=== PATIENT | male | born 1965 | race Caucasian/White ===

== ENCOUNTER 2023-02-23 01:51 | Inpatient (IN) | payer MEDICARE, SELFPAY ==
--- NOTE | ~2023-02-23 | CT_ITS ---
EXAMINATION: CT HEAD WITHOUT CONTRAST CLINICAL INFORMATION: Altered mental status. COMPARISON: None available. TECHNIQUE: Contiguous axial imaging was performed from the skull base to vertex without intravenous administration of contrast. This CT examination was performed using dose optimization techniques as appropriate, variously including the following: *Automated exposure control *Adjustment of mA and/or kV according to patient size (this includes techniques or standardized protocols for targeted exams where dose is matched to indication/reason for exam; i.e. extremities or head) *Use of iterative reconstruction technique DLP: 680 mGy-cm FINDINGS: There is mild cerebral volume loss with prominence of the lateral and the third ventricles. The cortical sulci are widened appropriately. The fourth ventricle and basal cisterns are normally outlined. There is no acute territorial defect, hemorrhage or midline shift. The extra-axial spaces are unremarkable. Calvarium: Intact. Maxillofacial sinuses and mastoids: Clear as visualized. CT/CT head/brain wo IV con IMPRESSION: No acute intracranial abnormality.
--- NOTE | 2023-02-23 02:12 | ED.PSYCH ---
HPI - Psych General Chief Complaint: General Medical Stated Complaint: SECTION 12 Time Seen by Provider: 02/23/23 02:12 Source: EMS Mode of arrival: EMS Limitations: altered mental status History of Present Illness HPI Narrative: 58-year-old male history of gastritis was brought to the emergency department on a Section 12 for altered mental status. Information is obtained from the nursing note since the patient is altered and cannot give me a history. Patient was found outside his apartment building, not dressed appropriately for the weather, bystanders called police. Patient wandering. Not making sense. Unable to answer questions or follow commands. Unknown drug use. Section 12 applied by police. Patient holding his head say Oh No . Related Data Home Medications Medication Instructions Recorded Confirmed aspirin 81 mg tablet,delayed 81 mg PO DAILY 02/23/23 02/23/23 release baclofen 20 mg tablet 20 mg PO QID 02/23/23 02/23/23 clobetasol 0.05 % topical ointment 1 appl topical BID 02/23/23 02/23/23 clonidine HCl 0.1 mg tablet 0.1 mg PO TID 02/23/23 02/23/23 diltiazem HCl 180 mg 180 mg PO DAILY 02/23/23 02/23/23 capsule,extended release 24 hr fluoxetine 20 mg capsule (Prozac) 20 mg PO DAILY 02/23/23 02/23/23 fluoxetine 40 mg capsule 40 mg PO DAILY 02/23/23 02/23/23 gabapentin 600 mg tablet 600 mg PO QID 02/23/23 02/23/23 hydroxyzine HCl 50 mg tablet 50 mg PO TID PRN Anxiety 02/23/23 02/23/23 ibuprofen 800 mg tablet 800 mg PO Q8H PRN pain 02/23/23 02/23/23 lisinopril 20 mg tablet 20 mg PO BEDTIME 02/23/23 02/23/23 olanzapine 10 mg tablet 10 mg PO BEDTIME 02/23/23 02/23/23 pantoprazole 40 mg tablet,delayed 40 mg PO BID 02/23/23 02/23/23 release pregabalin 225 mg capsule 225 mg PO DAILY 02/23/23 02/23/23 quetiapine 300 mg tablet,extended 300 mg PO BEDTIME 02/23/23 02/23/23 release 24 hr Allergies Allergy/AdvReac Type Severity Reaction Status Date / Time hydrocodone [HYDROCODONE] Allergy Unknown NAUSEA & Unverified 11/09/19 15:34 VOMITING codeine [CODEINE] AdvReac Unknown STOMACH Unverified 11/09/19 15:34 UPSET oxycodone [OXYCODONE] AdvReac Unknown STOMACH Unverified 11/09/19 15:34 UPSET Review of Systems Review of Systems: Yes all other systems are reviewed and are negative [facility] Past Medical History [facility] Narrative: Past medical history: Gastritis Onset Date is defined in the Problem List Problems that require an onset date and time if occurred within 24 hrs of arrival to the ED Aortic Dissection and Rupture; Neurologic impairment; Cardiopulmonary Arrest; Endotracheal Intubation; Insertion or Replacement of Mechanical Circulatory Assist Device Medical History (Updated 02/23/23 @ 11:41 by Cristian Spencer MD) Alcoholism Altered mental status Gastritis Physical Exam Vital Signs: Vital Signs: Last Vital Signs Temp 98.0 F 02/23/23 15:23 Pulse 77 02/23/23 15:23 Resp 18 02/23/23 15:23 BP 163/99 H 02/23/23 15:23 Pulse Ox 96 02/23/23 15:23 O2 Del Method Room Air 02/23/23 15:23 BMI result Body Mass Index 28.7 exam: General: Awake, Patient speaking in 1-2 word sentences, not answering questions appropriately, not following commands Head: Normocephalic, atraumatic EENT: PERRL, Lids normal, sclera normal, conjunctiva normal, nose normal , ears normal, throat without erythema or exudates Neck: no adenopathy Lung: breath sounds symmetric, no wheezing, rales or rhonchi Chest: symmetric movement, nontender Heart: regular rate and rhythm, normal S1, S2 no murmurs or rubs Abdomen: soft, non-tender, nondistended, normal bowel sounds Back: no vertebral tenderness, no CVAT Extremities: no deformities, moves all extremities symmetrically Neuro: Awake, not answer questions appropriately, not following commands, moves all extremities symmetrically Course Reevaluation(s) Reevaluation #1: patient was signed out to me by the overnight physician. The patient is a 58-year-old male who was brought to the hospital by ambulance. He was apparently found outside his apartment building. He was not dressed appropriately for the weather and he seemed to be confused. The initial thought was that the patient must be exhibiting some kind of drug intoxication and he was observed for several hours. At change of shift the patient remains extremely confused. He answers questions very poorly, mostly simply repeating whatever is said to him. He has no lateralizing signs on exam and he has a negative head CT. I spoke with the patient's daughter Edith on the phone. She told me that the patient is an alcoholic. She says that he was sober for 15 years but fell off the wagon last year. She says that she does not know what his drinking has been like recently. She says that the patient also abuses whatever drugs he is prescribed by his doctor. He sees Dr. Danny Davis at [facility] in [place]. She says that she spoke to him on the phone 3 days ago and he sounded perfectly normal. She says that the last time she spoke to him was late on at around midnight. She says at that time he sounded confused on the phone and she assumed he had been drinking. My impression is that the patient is exhibiting a delirium that is likely related to his alcohol use. I have ordered 500 mg of IV thiamine. He is also somewhat hypertensive. I have ordered was of IV lorazepam. I think he need to be hospitalized for his altered mental status. Medications Administered Discontinued Medications Generic Name Dose Route Start Last Admin Trade Name Rigobertoq PRN Reason Stop Dose Admin Enoxaparin Sodium 40 mg 02/23/23 11:00 02/23/23 11:47 Enoxaparin Sodium 40 Mg/0.4 Ml Syringe SUBCUT Not Given Q24H ZI Folic Acid 1 mg 02/23/23 11:05 02/23/23 11:46 Folic Acid 1 Mg Tablet PO Not Given DAILY ZI Sodium Chloride 1,000 mls @ 999 mls/hr 02/23/23 02:16 02/23/23 04:27 Ns IV 02/23/23 03:16 Infused .Q1H1M STA Infusion Thiamine HCl 500 mg/ Sodium 105 mls @ 210 mls/hr 02/23/23 07:30 02/23/23 09:28 Chloride IV 02/23/23 07:59 Infused ONCE ONE Infusion Sodium Chloride 1,000 mls @ 999 mls/hr 02/23/23 08:45 02/23/23 11:36 Ns IV 02/23/23 09:45 Infused .Q1H1M ZI Infusion Dextrose/Sodium Chloride 1,000 mls @ 100 mls/hr 02/23/23 11:00 02/23/23 12:16 D5ns IVCONT 100 mls/hr .Q10H ZI Administration Lorazepam 1 mg 02/23/23 02:16 02/23/23 02:43 Lorazepam 2 Mg/Ml Vial IVPUSH 02/23/23 02:17 1 mg STAT STA Administration Lorazepam 2 mg 02/23/23 08:34 02/23/23 08:39 Lorazepam 2 Mg/Ml Vial IVPUSH 02/23/23 08:35 2 mg ONCE ONE Administration Pantoprazole Sodium 40 mg 02/23/23 08:34 02/23/23 08:46 Pantoprazole Sodium 40 Mg/10 Ml Vial IVPUSH 02/23/23 08:35 40 mg ONCE ONE Administration Sodium Chloride 3 ml 02/23/23 16:00 02/23/23 16:20 0.9 % Sodium Chloride Flush 3 Ml Syringe IVFLUSH Not Given QSHIFT ZI Medical Decision Making Medical Decision Making MDM Narrative: 58-year-old male with history of gastritis who was brought to emergency department on a Section 12 after was found walking outside of his apartment building, acting inappropriately, wandering not answer questions or following commands. Patient had similar behavior the emergency Department. Following evaluation was ordered: CBC, CMP, ethanol level, drug urine screen, TSH with free T4, urinalysis, COVID-19, influenza, RSV, ethanol level, CT scan of the brain without IV contrast patient was treated with Ativan 1 mg IV and normal saline x1 L 04:31 my interpretation patient's laboratory evaluation is as follows: CBC was normal . CMP revealed elevated BUN of 22, elevated glucose 154. Normal TSH of 2.58. Ethanol was below detectable limits. COVID-19, influenza and RSV were negative. Urine drug screen pending collection. CT scan of the brain revealed no acute process. Differential Diagnosis Differential Diagnoses: The differential diagnosis associated with the presentation includes Differential diagnosis includes was not limited to stroke, substance use disorder, alcohol intoxication, electrolyte abnormality, anemia, Admission/Observation Consideration of admission/observation: Escalation of care including admission/observation considered Lab Data 02/23/23 02:39 02/23/23 02:39 Labs: Lab Results 02/23/23 02/23/23 Range/Units 02:39 09:12 WBC 8.8 (4.8-10.8) X10*3/uL RBC 5.09 (4.60-5.80) X10*6/uL Hgb 15.5 (14.0-18.0) g/dl Hct 44.8 (42.0-52.0) % MCV 88.0 (80.0-98.0) fL MCH 30.5 (27.0-33.0) pg MCHC 34.6 (31.0-36.0) g/dl RDW 13.6 (11.0-16.0) % Plt Count 253 (160-400) X10*3/uL MPV 9.7 (9.4-12.4) fL Immature Gran % (Auto) 0.3 (0.0-0.4) % Neut % (Auto) 71.4 (45-73) % Lymph % (Auto) 17.2 L (20-40) % [place] % (Auto) 8.0 (2-11) % Eos % (Auto) 2.6 (0-4) % Baso % (Auto) 0.5 (0-2) % Lymph # (Auto) 1.5 (1.2-4.9) X10*3/uL [place] # (Auto) 0.7 (0.1-1.2) X10*3/uL Eos # (Auto) 0.2 (0.0-0.4) X10*3/uL Baso # (Auto) 0.0 (0.0-0.2) X10*3/uL Abs Immat Gran (auto) 0.03 (0.00-0.03) X10*3/uL Absolute Neuts (auto) 6.3 (2.0-8.3) x10*3/uL Absolute Nucleated RBC 0.000 (0.0-0.012) X10*3/uL Nucleated RBC % (auto) 0.0 (0.0-0.2) /100WBC Sodium 142 (135-145) mmol/L Potassium 4.6 (3.3-5.1) mmol/L Chloride 101 (96-108) mmol/L Carbon Dioxide 26 (22-29) mmol/L Anion Gap 20 (12-20) BUN 22 H (9-16) mg/dL Creatinine 1.18 (0.5-1.4) mg/dL Estim Creat Clear Calc 78.2 Estimated GFR > 60 Random Glucose 154 H (60-115) mg/dL Calcium 10.0 (8.4-10.2) mg/dL Total Bilirubin 0.5 (0.0-1.0) mg/dL AST 16 (5-37) U/L ALT 12 (0-40) U/L Alkaline Phosphatase 68 (39-117) U/L Total Protein 8.1 H (6.5-8.0) g/dL Albumin 4.7 (3.5-5.0) g/dL TSH 2.58 (0.32-4.0) uIU/mL Urine Color Yellow Urine Appearance Clear Urine pH 7.5 (5.0-9.0) Ur Specific [place] 1.025 (1.005-1.025) Urine Protein 30 (1+) H (Neg-Trace) mg/dL Urine Glucose (UA) Negative (Negative) mg/dL Urine Ketones 15 (Negative) mg/dL Urine Blood Negative (Negative) Urine Nitrite Negative (Negative) Ur Leukocyte Esterase Negative (Negative) Urine RBC 3-5 H (0-2) /HPF Urine WBC 0-5 (0-5) /HPF Ur Squamous Epith Cells 0-2 (0-2) /HPF Urine Bacteria None Seen (None Seen) Hyaline Casts 0-2 (0-2) /LPF Urine Opiates Screen Not Detected (Not Detect) Urine Fentanyl Screen Not Detected (Not Detect) Ur Barbiturates Screen Not Detected (Not Detect) Ur Phencyclidine Scrn Not Detected (Not Detect) Ur Amphetamines Screen Not Detected (Not Detect) U Benzodiazepines Scrn Not Detected (Not Detect) Urine Cocaine Screen Not Detected (Not Detect) U Marijuana (THC) Screen POSITIVE H (Not Detect) Ethyl Alcohol < 10 mg/dL Influenza Type A (PCR) NEGATIVE (Negative) Influenza Type B (PCR) NEGATIVE (Negative) RSV RNA Qual (PCR) NEGATIVE (Negative) SARS-CoV-2 RNA (RT-PCR) NEGATIVE (Negative) Radiology Impression Discussion of test interpretation with radiology: I have reviewed the radiologist's reading. Radiologist Impression: CT head/brain wo IV con IMPRESSION: No acute intracranial abnormality. Dictated By: Hasmukh Huff Discharge Plan Discharge Clinical Impression: Alcoholism Altered mental status Qualifiers: Altered mental status type: unspecified Qualified Code(s): R41.82 - Altered mental status, unspecified Patient Disposition: Left Against Medical Advice Interventions: ED Discharge Assessment Last Done: 02/23/23 19:39 Discharge Date/Time: 02/23/23 19:40
--- NOTE | 2023-02-23 02:16 | ECG_ITS ---
Test Reason : CHANGE IN MENTAL STATUS, CHEST PAIN Blood Pressure : / mmHG Vent. Rate : 063 BPM Atrial Rate : 063 BPM P-R Int : 140 ms QRS Dur : 072 ms QT Int : 418 ms P-R-T Axes : 053 -01 046 degrees QTc Int : 427 ms Normal sinus rhythm Normal ECG When compared with ECG of 28-JAN-2011 19:17, Premature supraventricular complexes are no longer Present Questionable change in QRS axis Referred By: Leandro Moore Electronically Signed By:Edson Sanchez
[2023-02-23 02:17] VITALS: BP 175/108; PULSE 89; O2SAT 100; BMI 28.7
--- NOTE | 2023-02-23 02:25 | PC.NURSE ---
pt unable to answer questions or follow commands at this time. pt vomited upon arrival. mold changer complete. pt taken to CT
[2023-02-23 02:42] LABS: MANUAL DIFF FLAG NO
[2023-02-23 02:43] LABS: Basophils Percent Auto 0.5 % (0-2); Eosinophils Absolute Auto 0.2 X10*3/uL (0.0-0.4); Eosinophils Percent Auto 2.6 % (0-4); Hematocrit 44.8 % (42.0-52.0); Hemoglobin 15.5 g/dl (14.0-18.0); Imm Gran Abs Auto 0.03 X10*3/uL (0.00-0.03); Imm Gran Pct Auto 0.3 % (0.0-0.4); Lymphocytes Absolute Auto 1.5 X10*3/uL (1.2-4.9); Lymphocytes Percent Auto 17.2 % (20-40); Mean Corpuscular HGB Conc 34.6 g/dl (31.0-36.0); Mean Corpuscular Hemoglobin 30.5 pg (27.0-33.0); Mean Platelet Volume 9.7 fL (9.4-12.4); Monocytes Absolute Auto 0.7 X10*3/uL (0.1-1.2); Neutrophils Absolute Auto 6.3 x10*3/uL (2.0-8.3); Neutrophils Percent Auto 71.4 % (45-73); Platelet Count 253 X10*3/uL (160-400); Red Blood Count 5.09 X10*6/uL (4.60-5.80); Red Cell Distribution Width 13.6 % (11.0-16.0); White Blood Count 8.8 X10*3/uL (4.8-10.8)
[2023-02-23] MEDS: LORazepam 2 MG/ML VIAL 1 MG IVPUSH (02:43)
[2023-02-23] MEDS: 0.9 % Sodium Chloride 1,000 ML 999 ML IV ×2 (02:43→08:46)
[2023-02-23 03:01] LABS: Alanine Aminotransferase 12 U/L (0-40); Albumin Level 4.7 g/dL (3.5-5.0); Alkaline Phosphatase 68 U/L (39-117); Anion Gap 20 (12-20); Aspartate Amino Transferase 16 U/L (5-37); Bilirubin Total 0.5 mg/dL (0.0-1.0); Blood Urea Nitrogen 22 mg/dL (9-16); Carbon Dioxide 26 mmol/L (22-29); Chloride 101 mmol/L (96-108); Creatinine Clr Calc Pharmacy 78.2; Estimated Glomerular Filt Rate > 60; Glucose Random 154 mg/dL (60-115); Potassium 4.6 mmol/L (3.3-5.1); Sodium 142 mmol/L (135-145); Total Protein 8.1 g/dL (6.5-8.0)
[2023-02-23 03:04] LABS: Ethanol < 10 mg/dL
[2023-02-23 03:20] LABS: TSH reflex Free T4 2.58 uIU/mL (0.32-4.0)
[2023-02-23 03:22] LABS: Influenza A PCR NEGATIVE (Negative); Influenza B PCR NEGATIVE (Negative); Resp Syncy Virus RNA Qual PCR NEGATIVE (Negative); SARS COV2 PCR INHOUSE NEGATIVE (Negative)
--- NOTE | 2023-02-23 04:42 | PC.NURSE ---
pt restless on stretcher.still unable to answer questions or follow most commands. IVF infusing slowly, will not keep arm straight
[2023-02-23 04:45] VITALS: BP 159/92; PULSE 55; RESP 14; TEMP 36.9; O2SAT 96
--- NOTE | 2023-02-23 06:30 | PC.NURSE ---
pt remains restless, kept getting tangled in IV tubing from rolling around. pt still unable to answer questions. Jose do you know where you are? , pt responds yes... Jose. no further elaboration given by pt
[2023-02-23 08:36] VITALS: BP 197/106; PULSE 74; RESP 14; TEMP 36.6; O2SAT 96
[2023-02-23] MEDS: Thiamine HCL 500 MG in 0.9 % Sodium Chloride 100 ML 210 MG IV (08:39)
[2023-02-23] MEDS: LORazepam 2 MG/ML VIAL IVPUSH (08:39)
[2023-02-23] MEDS: Pantoprazole Sodium 40 MG/10 ML VIAL IVPUSH (08:46)
[2023-02-23 09:02] VITALS: BP 158/93; PULSE 60; RESP 14; O2SAT 98
[2023-02-23 09:19] LABS: Appearance Urine Clear; Color Urine Yellow; Glucose Urine UA Negative (Negative); Leukocyte Esterase Urine Negative (Negative); Nitrite Urine Negative (Negative); PH 7.5 (5.0-9.0); Specific Gravity - Urine 1.025 (1.005-1.025); UMIC TRIGGER UACC YES; Urine Blood Negative (Negative); Urine Ketones 15 mg/dL (Negative); Urine Protein 30 (1+) mg/dL (Neg-Trace)
[2023-02-23 09:27] LABS: Bacteria Urine None Seen (None Seen); Hyaline Casts Urine 0-2 /LPF (0-2); Squamous Epithelial Cell Urine 0-2 /HPF (0-2); WBC Urine 0-5 /HPF (0-5)
--- NOTE | 2023-02-23 09:29 | PC.NURSE ---
Addendum entered by Alyssa Contreras 02/23/23 09:32: per daughter, patient has history of etoh/substance use. states patient has been off for the past few days . Original Note: continues to be altered at this time, unable to answer questions appropriately. moved from [facility] to bed 19, began vomiting approx 200mL with ?blood tinged emesis. changed and repositioned in bed, rectal temp obtained. straight cath obtained, urine sent. patient tolerated fairly. patient occasionally trying to get out of bed, able to be redirected easily. appears to be resting quietly with even and unlabored respirations.
[2023-02-23 09:35] LABS: Amphetamine Screen Urine Not Detected (Not Detect); Barbiturates, Urine Not Detected (Not Detect); Benzodiazepines Screen Urine Not Detected (Not Detect); Cannabinoid Screen Urine POSITIVE (Not Detect); Cocaine Screen Urine Not Detected (Not Detect); Fentanyl, urine Not Detected (Not Detect); Opiate Screen Urine Not Detected (Not Detect); Phencyclidine Screen Urine Not Detected (Not Detect)
--- NOTE | 2023-02-23 10:26 | PC.NURSE ---
Hospitalist at bedside to evaluate patient.
--- NOTE | 2023-02-23 10:36 | PM.IMHP ---
History of Present Illness Date of Service: 02/23/23 Attending physician on admission: Cristian Spencer Chief Complaint: Altered mental status Jose Bennett is a 58-year-old man with past medical history significant for alcohol abuse and gastritis was brought to the emergency department after he was found to her altered mental status. HPI was obtained from emergency physician, chart review and ED RN as patient was sedated upon evaluation. he seems leg the patient was found also his apartment building acting normally, no dressed appropriately for the weather by bystanders and police department was contacted. He has not been able to answer questions appropriately. In the ED, he was found to have stable vital signs. There is no fever reported. His blood pressure is 150/93. Blood workup including CBC, CMP and TSH unremarkable. Head CT scan without contrast showed no acute intracranial abnormality. EKG showed NSR, no acute ischemic changes. Viral testing for COVID-19, influenza and RSV are negative. ED Tx: Ativan 2 mg IV, Thiamine 200 mg IV and Zofran 4 mg IV X1. NS 1L 1000 ml. Review of Systems Review of Systems: Yes Unobtainable due to mental status Neurologic: Reports confusion Psychiatric: Psychiatric: Reports confusion [facility] Medical History (Updated 02/23/23 @ 11:41 by Cristian Spencer MD) Alcoholism Altered mental status Gastritis Social History Advance Directives: No Advance Directives Information Provided: No Meds Allergies Allergy/AdvReac Type Severity Reaction Status Date / Time hydrocodone [HYDROCODONE] Allergy Unknown NAUSEA & Unverified 11/09/19 15:34 VOMITING codeine [CODEINE] AdvReac Unknown STOMACH Unverified 11/09/19 15:34 UPSET oxycodone [OXYCODONE] AdvReac Unknown STOMACH Unverified 11/09/19 15:34 UPSET Active Medications: HOME MEDICATIONS UNABLE TO ASSESS DUE TO PATIENT'S ALTERED MENTAL STATUS. Home Medications Medication Instructions Recorded Confirmed Last Taken Type aspirin 81 mg tablet,delayed 81 mg PO DAILY 02/23/23 Unknown History release baclofen 20 mg tablet 20 mg PO QID 02/23/23 Unknown History clobetasol 0.05 % topical ointment 1 appl topical BID 02/23/23 Unknown History clonidine HCl 0.1 mg tablet 0.1 mg PO TID 02/23/23 Unknown History diltiazem HCl 180 mg 180 mg PO DAILY 02/23/23 Unknown History capsule,extended release 24 hr fluoxetine 40 mg capsule 40 mg PO QAM 02/23/23 Unknown History gabapentin 600 mg tablet 600 mg PO QID 02/23/23 Unknown History hydroxyzine HCl 50 mg tablet 50 mg PO TID 02/23/23 Unknown History ibuprofen 800 mg tablet 800 mg PO Q8H PRN pain 02/23/23 Unknown History lisinopril 20 mg tablet 20 mg PO BEDTIME 02/23/23 Unknown History olanzapine 10 mg tablet 10 mg PO BEDTIME 02/23/23 Unknown History pantoprazole 40 mg tablet,delayed 40 mg PO BID 02/23/23 Unknown History release pregabalin 225 mg capsule 225 mg PO DAILY 02/23/23 Unknown History quetiapine 300 mg tablet,extended 300 mg PO BEDTIME 02/23/23 Unknown History release 24 hr Physical Exam Vital Signs and Narrative: Vital Signs: Last Vital Signs Temp 97.9 F 02/23/23 08:36 Pulse 60 02/23/23 09:02 Resp 14 02/23/23 09:02 BP 158/93 H 02/23/23 09:02 Pulse Ox 98 02/23/23 09:02 O2 Del Method Room Air 02/23/23 09:02 BMI result Body Mass Index 28.7 Const: Other: Sedated. Unable to answer questions. General: no acute distress and confusion Orientation/consciousness: confusion Limitations: altered mental status HEENT: Head: Yes normal to inspection, Yes normocephalic and Yes atraumatic Eyes: General: appearance normal, both eyes and all related structures Pupils: Equal, round and reactive pupils present EOM: No Nystagmus present Direct Ophthalmoscopy: normal light reflex Resp: Effort & Inspection: normal respiratory effort Cardio: Rate: regular rate Rhythm: regular rhythm Heart sounds: no murmurs GI: Inspection: Yes normal to inspection Palpation (GI): Soft to palpation and nontender Auscultation: normal bowel sounds Neuro: General: confusion and other (unable to follow commands, open eyes to verbal stimuli) Cranial nerves: Yes Equal, round and reactive pupils present and No Nystagmus present Motor exam (neuro): no tremors, No Asterixis during motor activity present and Other motor observations present (no gross focal abnormalities) Extrem: General: Yes normal to inspection, Yes full ROM, Yes no clubbing, cyanosis or edema, Yes no pedal edema and Yes pedal edema Psych: Speech and movement: Mute speech present Attitude: Other attitude/behavior findings present (Psych) Results Labs 02/23/23 02:39 02/23/23 02:39 Labs: Laboratory Results - last 24 hr 02/23/23 02/23/23 02:39 09:12 MCV 88.0 MCH 30.5 MCHC 34.6 RDW 13.6 Plt Count 253 MPV 9.7 Immature Gran % (Auto) 0.3 Neut % (Auto) 71.4 Lymph % (Auto) 17.2 L [place] % (Auto) 8.0 Eos % (Auto) 2.6 Baso % (Auto) 0.5 Lymph # (Auto) 1.5 [place] # (Auto) 0.7 Eos # (Auto) 0.2 Baso # (Auto) 0.0 Abs Immat Gran (auto) 0.03 Absolute Neuts (auto) 6.3 Absolute Nucleated RBC 0.000 Nucleated RBC % (auto) 0.0 Anion Gap 20 Estim Creat Clear Calc 78.2 Estimated GFR > 60 Random Glucose 154 H Calcium 10.0 Total Bilirubin 0.5 AST 16 ALT 12 Alkaline Phosphatase 68 Total Protein 8.1 H Albumin 4.7 TSH 2.58 Urine Color Yellow Urine Appearance Clear Urine pH 7.5 Ur Specific [place] 1.025 Urine Protein 30 (1+) H Urine Glucose (UA) Negative Urine Ketones 15 Urine Blood Negative Urine Nitrite Negative Ur Leukocyte Esterase Negative Urine RBC 3-5 H Urine WBC 0-5 Ur Squamous Epith Cells 0-2 Urine Bacteria None Seen Hyaline Casts 0-2 Urine Opiates Screen Not Detected Urine Fentanyl Screen Not Detected Ur Barbiturates Screen Not Detected Ur Phencyclidine Scrn Not Detected Ur Amphetamines Screen Not Detected U Benzodiazepines Scrn Not Detected Urine Cocaine Screen Not Detected U Marijuana (THC) Screen POSITIVE H Ethyl Alcohol < 10 Influenza Type A (PCR) NEGATIVE Influenza Type B (PCR) NEGATIVE RSV RNA Qual (PCR) NEGATIVE SARS-CoV-2 RNA (RT-PCR) NEGATIVE Imaging Radiologist's Impressions: Impressions Head CT 02/23/23 02:31 IMPRESSION: No acute intracranial abnormality. Assessment and Plan (1) Alcoholism: Status: Acute (2) Altered mental status: Qualifiers: Altered mental status type: unspecified Qualified Code(s): R41.82 - Altered mental status, unspecified Status: Acute (3) Gastritis: Qualifiers: Gastritis type: unspecified gastritis Chronicity: chronic Gastritis bleeding: without bleeding Qualified Code(s): K29.50 - Unspecified chronic gastritis without bleeding Status: Chronic Plan Jose Bennett is a 58-year-old man with past medical history significant for alcohol abuse and gastritis admitted with: 1. Altered mental status. Etiology is unclear to me. Possible encephalopathy related to alcohol consumption. Currently sedated after receiving tx with Ativan. Will Admitting to hospitalist service. [facility] protocol. Will consider Ativan or phenobarbital as needed. Start IVFs with D5 and thiamine daily (already given in ED). Will consider brain MRI if neuro status worsen. 2. Hx of alcohol abuse. [facility] protocol. Will consider Ativan as needed. Start therapy with multivitamin and folic acid. Social work consult/Case management evalutation. 3. Hx of gastritis. Will order famotidine. 4. Hypertension. Will continue anti-HTN meds after home meds reviewed by pharmacy. Quality Stroke Does the patient have a stroke diagnosis?: No VTE Prior VTE?: No VTE Risk Level:: Medical - moderate - high VTE Device Contraindication: Treatment Not Indicated VTE Drug Contraindication: N/A - Med Ordered
[2023-02-23 11:29] LABS: Ammonia 35 umol/L (13-55)
--- NOTE | 2023-02-23 11:42 | PC.NURSE ---
appears to be more oriented, when asked about birthday able to state [birth year] however patient repeats self over and over. knows he is in emergency department, does not know why he is here or events leading up to coming.
--- NOTE | 2023-02-23 12:06 | PHA.MEDREC ---
Pharmacy Consult ? Medication Reconciliation Pharmacy has completed the medication reconciliation. Patient unable to answer questions. Called daughter Edith which does not know patient meds. Received med list from [email or web address] [facility] (01/06/23), however some changes when compared to claim history. Patient hasn't filled clotrimazole, diclofenac, or zofran in months so left off med rec. Per claim history and pharmacy, patient changed from clonidine 0.1 mg BID to TID, Prozac changed from 40 mg BID to 60 mg daily, seroquel changed from 100 mg to 300 mg ER bedtime. Patient's pharmacy also confirmed that the patient filled gabapentin 600mg QID and states that they have an active script for Pregablin 225 mg daily. When looking at claim history, pregablin and gabapentin have been filled within the same month of each other for several months.
[2023-02-23] MEDS: Dextrose 5 % and 0.9 % NaCl 1,000 ML 100 ML IVCONT (12:16)
[2023-02-23 12:17] VITALS: BP 114/57; PULSE 78; RESP 14; O2SAT 97
--- NOTE | 2023-02-23 14:28 | PC.NURSE ---
Pt resting comfortably on stretcher, respirations equal and unlabored. Awaiting inpatient bed assignment.
[2023-02-23 15:23] VITALS: BP 163/99; PULSE 77; RESP 18; TEMP 36.7; O2SAT 96
--- NOTE | 2023-02-23 16:30 | PC.NURSE ---
patient alert and oriented at this time, speaking in full clear sentences and responding to questions appropriately. unsure of events leading to him coming to emergency department, denies ETOH/substance use last night. requesting water and phone to call daughter.
--- NOTE | 2023-02-23 18:15 | PC.NURSE ---
patient requesting to leave, hospitalist speaking with patient. ambulating independently with strong, steady gait. continues to be alert and oriented, answering questions appropriately.
--- NOTE | 2023-02-23 18:37 | P.DS_ITS ---
DS: Providers Provider Date of Service: 02/23/23 Date of admission: 02/23/23 10:49 Primary care physician: Unknown Physician DS: Diagnosis Discharge Diagnosis (1) Alcoholism: Status: Inactive (2) Altered mental status: Status: Resolved (3) Gastritis: Status: Resolved DS: Summary Hospital Course Hospital Course: Chief Complaint: Altered mental status Jose Bennett is a 58-year-old man with past medical history significant for alcohol abuse and gastritis was brought to the emergency department after he was found to her altered mental status. HPI was obtained from emergency phys ician, chart review and ED RN as patient was sedated upon evaluation. he seems leg the patient was found also his apartment building acting normally, no dressed appropriately for the weather by bystanders and police department was contacted. He has not been able to answer questions appropriately. In the ED, he was found to have stable vital signs. There is no fever reported. His blood pressure is 150/93. Blood workup including CBC, CMP and TSH unremarkable. Head CT scan without contrast showed no acute intracranial abnormality. EKG showed NSR, no acute ischemic changes. Viral testing for COVID- 19, influenza and RSV are negative. ED Tx: Ativan 2 mg IV, Thiamine 200 mg IV and Zofran 4 mg IV X1. NS 1L 1000 ml. Hospital course: Patient was admited due to altered mental status with unremarkable work and treated as above, after sleeping most of the day, he has waken up completley lucid, alert oriented to self, place, time and aknowledge he took too many pills including Baclofen. Patient was not admitted under section. He discusouraged to leave this late but adamament he's leaving and assuming all risks, including his condition worsening, leading to injury or even . He assumes complete responsibility and able to articulate this in his own words and will proceed to leave [place]. He provided from memory his daughter Edith's number [phone], I spoke to her explain to her that we unable to hold him agaist his will at this time given complete lucidity and understanding of his circumstance. OTONIEL Contreras witnessed the conversation and interaction Time Attestation Discharge coordination time: Greater than 30 minutes Quality: Safe Use of Opioids Does Pt have an Active Cancer Diagnosis on the Problem List?: No Quality: Stroke Does the patient have a stroke diagnosis?: No Physical Exam Vital Signs: Vital Signs: Last Vital Signs Temp 98.0 F 02/23/23 15:23 Pulse 77 02/23/23 15:23 Resp 18 02/23/23 15:23 BP 163/99 H 02/23/23 15:23 Pulse Ox 96 02/23/23 15:23 O2 Del Method Room Air 02/23/23 15:23 BMI result Body Mass Index 28.7 DS: Data Data Completed and Pending Labs on day of discharge: Laboratory Results - last 24 hr 02/23/23 02/23/23 02/23/23 02:39 09:12 11:14 WBC 8.8 RBC 5.09 Hgb 15.5 Hct 44.8 MCV 88.0 MCH 30.5 MCHC 34.6 RDW 13.6 Plt Count 253 MPV 9.7 Immature Gran % (Auto) 0.3 Neut % (Auto) 71.4 Lymph % (Auto) 17.2 L [place] % (Auto) 8.0 Eos % (Auto) 2.6 Baso % (Auto) 0.5 Lymph # (Auto) 1.5 [place] # (Auto) 0.7 Eos # (Auto) 0.2 Baso # (Auto) 0.0 Abs Immat Gran (auto) 0.03 Absolute Neuts (auto) 6.3 Absolute Nucleated RBC 0.000 Nucleated RBC % (auto) 0.0 Sodium 142 Potassium 4.6 Chloride 101 Carbon Dioxide 26 Anion Gap 20 BUN 22 H Creatinine 1.18 Estim Creat Clear Calc 78.2 Estimated GFR > 60 Random Glucose 154 H Calcium 10.0 Total Bilirubin 0.5 AST 16 ALT 12 Alkaline Phosphatase 68 Ammonia 35 Total Protein 8.1 H Albumin 4.7 TSH 2.58 Urine Color Yellow Urine Appearance Clear Urine pH 7.5 Ur Specific [place] 1.025 Urine Protein 30 (1+) H Urine Glucose (UA) Negative Urine Ketones 15 Urine Blood Negative Urine Nitrite Negative Ur Leukocyte Esterase Negative Urine RBC 3-5 H Urine WBC 0-5 Ur Squamous Epith Cells 0-2 Urine Bacteria None Seen Hyaline Casts 0-2 Urine Opiates Screen Not Detected Urine Fentanyl Screen Not Detected Ur Barbiturates Screen Not Detected Ur Phencyclidine Scrn Not Detected Ur Amphetamines Screen Not Detected U Benzodiazepines Scrn Not Detected Urine Cocaine Screen Not Detected U Marijuana (THC) Screen POSITIVE H Ethyl Alcohol < 10 Influenza Type A (PCR) NEGATIVE Influenza Type B (PCR) NEGATIVE RSV RNA Qual (PCR) NEGATIVE SARS-CoV-2 RNA (RT-PCR) NEGATIVE Discharge Plan Discharge Anticipated Discharge Date/Time: 02/23/23 18:34 Patient Disposition: Left Against Medical Advice Discharge Diagnosis: altered mental status, substance use Referrals: Physician,Unknown J [Primary Care Provider] - 1 Week Discharge Medications: No Action fluoxetine 40 mg capsule 40 mg PO DAILY Rx Instructions: with 20 mg clonidine HCl 0.1 mg tablet 0.1 mg PO TID gabapentin 600 mg tablet 600 mg PO QID ibuprofen 800 mg tablet 800 mg PO Q8H PRN (Reason: pain) diltiazem HCl 180 mg capsule,extended release 24hr 180 mg PO DAILY lisinopril 20 mg tablet 20 mg PO BEDTIME olanzapine 10 mg tablet 10 mg PO BEDTIME hydroxyzine HCl 50 mg tablet 50 mg PO TID PRN (Reason: Anxiety) aspirin 81 mg tablet,delayed release (DR/EC) 81 mg PO DAILY baclofen 20 mg tablet 20 mg PO QID pantoprazole 40 mg tablet,delayed release (DR/EC) 40 mg PO BID clobetasol 0.05 % ointment 1 appl topical BID quetiapine 300 mg tablet extended release 24 hr 300 mg PO BEDTIME fluoxetine [Prozac] 20 mg capsule 20 mg PO DAILY Rx Instructions: with 40mg pregabalin 225 mg capsule 225 mg PO DAILY Discharge Orders: Discharge Order (Routine); Ordered 02/23/23 Ordered By: José Miguel Mcgee Diet: Advance to usual diet Activity on Discharge: As tolerated Stand Alone Forms: Against Medical Advice, Substance Abuse Outpt Detox Care Plan Goals: avoid coming back in similar condition Health Concerns: altered mental status that has resolved, substance use, alcoholic Plan of Treatment: tk KOO, instructed to avoid use of any ilicit substance or non-prescribed medication, spoke to her daughter Edith [phone] and will figure out to get him Assessment: tk KOO Discharge Date/Time: 02/24/23 16:52
--- NOTE | 2023-02-24 08:44 | MHC.CM.ED ---
Patient left AMA before being seen by case management.
== END 2023-02-24 16:52 | disposition left against medical advice (07) | DRG 918 ==
LOC: HO.ED 10:52 → HO.EDOVER 11:00
PROVIDERS: Emergency Medicine Emergency Medical Services; Admitting Provider Internal Medicine; Emergency Provider Emergency Medicine; Visit Provider Internal Medicine
DX: T42.8X1A Poisoning by antiparkinsonism drugs and other central muscle-tone depressants, accidental (unintentional), initial encounter (principal); R41.82 Altered mental status, unspecified; K29.50 Unspecified chronic gastritis without bleeding; I10 Essential (primary) hypertension; F10.20 Alcohol dependence, uncomplicated; Z20.822 Contact with and (suspected) exposure to COVID-19; Z79.82 Long term (current) use of aspirin; Z79.899 Other long term (current) drug therapy
CPT/HCPCS: 0241U; 36415; 70450; 80053; 80307; 81001; 82140; 84443; 85025; 93005; 99285; C9113; J2060; J3411

== ENCOUNTER → 2023-02-23 02:16 | Outpatient (BNV) | payer MEDICARE, SELFPAY | PROVIDERS: Admitting Provider Internal Medicine; Emergency Provider Emergency Medicine; Visit Provider Internal Medicine Cardiovascular Disease | DX: R07.9 Chest pain, unspecified (principal); R41.82 Altered mental status, unspecified | CPT/HCPCS: 93010 ==

== ENCOUNTER → 2023-02-23 10:49 | Outpatient (BNV) | payer MEDICARE, SELFPAY | PROVIDERS: Admitting Provider Internal Medicine; Emergency Provider Emergency Medicine; Visit Provider Internal Medicine | DX: F10.20 Alcohol dependence, uncomplicated (principal); R41.82 Altered mental status, unspecified; K29.50 Unspecified chronic gastritis without bleeding | CPT/HCPCS: 99222; 99239 ==

== ENCOUNTER 2024-05-01 12:57 | Outpatient (REF) | payer OTHER, SELFPAY ==
--- NOTE | ~2024-05-01 | XR_ITS ---
EXAMINATION: XR KNEE, RIGHT CLINICAL INFORMATION: S83.91XA - Sprain of unspecified site of right knee, initial encounter COMPARISON: None available. TECHNIQUE: Four views of the right knee. FINDINGS: No fracture, dislocation, or suspicious bone lesion. Normal bone mineralization. Normal alignment. Joint spaces are preserved. No significant arthropathy. No significant joint effusion. Soft tissues demonstrate moderate vascular calcifications. XR/XR knee RT 4V IMPRESSION: 1. No acute findings right knee. Electronically signed by: Ronnie Ley MD 05/01/2024 02:28 PM EDT
--- OUTSIDE RECORDS SUMMARY | 2024-05-01 16:01 | XMS_ITS | Encounter Summary ---
Author Organization [facility] Address [address] [place] [address] Care Team Providers Care Sales Agent Trading Stamps Name Role Phone Danny Davis MD Primary Care Provider [phone] Encounter Details Date Type Department Care Team (Late Contact Info) Description 04/17/2024 Telephone Adult Medicine 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 Pt is in agreement with this plan. documented in this encounter Plan of Treatment Upcoming Encounters Date Type Department Care Team (Late st Contact Info) Description 05/05/2024 4:30 PM EDT Office Visit Adult Medicine [facility] [address] [place] [phone] Danny Davis MD [address] [place] [phone] 05/08/2024 2:45 PM EDT Office Visit [facility] Hematology Oncology [address] [place] [phone] Chencho Redman MD [address] [place] [phone] documented as of this encounter Visit Diagnoses Not on filedocumented in this encounter Care Teams Sales Agent Trading Stamps Relationship Specialty Start Date End Date Danny Davis MD [address] [place] [id number] PCP - General Internal Medicine 10/20/11 documented as of this encounter
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
--- OUTSIDE RECORDS SUMMARY | 2024-05-01 16:01 | XMS_ITS | Encounter Summary ---
Author Organization [facility] Address [address] [place] [address] Care Team Providers Care Ekg Tech Name Role Phone Danny Davis MD Primary Care Provider [phone] Reason for Visit * Reason Onset Date Comments Medication Reaction 04/12/2024 Encounter Details Date Type Department Care Team ([facility] st Contact Info) Description 04/12/2024 Telephone Adult Medicine [facility] [address] [place] [phone] Danny Davis MD [address] [place] [address] Medication Reaction Social History Tobacco Use Types [...] 4:30 PM EDT Office Visit Adult Medicine [address] [phone] Danny Davis MD [address] [place] [address] 05/08/2024 2:45 PM EDT Office Visit [facility] Hematology Oncology [address] [place] [phone] Chencho Redman MD [address] [place] [phone] documented as of this encounter Visit Diagnoses Not on filedocumented in this encounter Care Teams Ekg Tech Relationship Specialty Start Date End Date Danny Davis MD [address] [place] [phone] PCP - General Internal Medicine 10/20/11 documented as of this encounter
== END 2024-05-01 12:58 | disposition home or self-care (01) ==
LOC: HO.HMGCX 12:57
PROVIDERS: Visit Provider Nurse Practitioner Family
DX: S83.91XA Sprain of unspecified site of right knee, initial encounter (principal)
CPT/HCPCS: 73564; 99212

== ENCOUNTER 2024-05-01 12:57 | Outpatient (AMB) | payer MEDICARE, SELFPAY ==
--- NOTE | 2024-05-01 13:22 | AM.OFFWIN_ITS ---
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 Patient Tobacco Use Status: Former Tobacco user Allergies hydrocodone [HYDROCODONE] Allergy (Unknown, Unverified 05/01/24 13:23) NAUSEA & VOMITING codeine [CODEINE] Adverse Reaction (Unknown, Unverified 05/01/24 13:23) STOMACH UPSET oxycodone [OXYCODONE] Adverse Reaction (Unknown, Unverified 05/01/24 13:23) STOMACH UPSET Do you need a note to return to daycare/school/sports/work: No HPI HPI Comments History of Present Illness Details 59 y/o male patient who presents to the walk in clinic with c/o right knee pain for couple months. He injured his knee when Basketball with his Son. Reports hearing a POP when landed after Jump. Reports pain with ROM; Bending and walking up Stairs. [facility] Medical History (Updated 05/01/24 @ 14:05 by Norah Lockett NP) Right knee sprain Alcoholism Altered mental status Gastritis Social History Patient Tobacco Use Status: Former Tobacco user Review of Systems Const All systems reviewed & are unremarkable except as noted in HPI and below Physical Exam Vital Signs: Last Vital Signs Pulse 87 05/01/24 13:23 BP 118/70 05/01/24 13:23 Pulse Ox 95 05/01/24 13:23 Oxygen Delivery Method Room Air 05/01/24 13:23 BMI result Body Mass Index 35.7 Const General: cooperative and no acute distress; No comfortable Nutritional Appearance: overweight Orientation/consciousness: patient oriented x3 Neuro General: patient oriented x3, gait normal and moves all extremities Extrem Right lower extremity: normal to inspection and knee Details: tenderness Location: of the patella, of the medial joint line and of the lateral joint line and normal ROM; no swelling, no deformity and no unusual warmth Left lower extremity: normal to inspection and full ROM Psych Speech and movement: Normal speech and movement present Assessment & Plan Assessment & Plan (1) Right knee sprain: Code(s): S83.91XA - Sprain of unspecified site of right knee, initial encounter Qualifiers: Encounter type: initial encounter Involved ligament of knee: unspecified ligament Qualified Code(s): S83.91XA - Sprain of unspecified site of right knee, initial encounter Plan: Ordered Xray Knee Knee Brace NSAIDs for pain relief Rest joint Ice/Hot Medications: New diclofenac sodium 1% 2 grams topical BID 100 grams 0RF PAIN S83.91XA - Sprain of unspecified site of right knee, initial encounter ibuprofen 800 mg PO Q8H PRN 20 tabs 0RF pain S83.91XA - Sprain of unspecified site of right knee, initial encounter Coding Level of Care Code Est Pt Level 4 (92214) Diagnoses Sprain of right knee, unspecified ligament, initial encounter S83.91XA Encounter type: initial encounter Involved ligament of knee: unspecified ligament Time Spent (min) 20
[2024-05-01 13:23] VITALS: BP 118/70; PULSE 87; O2SAT 95; BMI 35.7
--- OUTSIDE RECORDS SUMMARY | 2024-05-01 14:31 | XMS_ITS | Encounter Summary ---
Author Organization [facility] Address [address] [place] [address] Care Team Providers Care Mapping Editor Name Role Phone Danny Davis MD Primary Care Provider Encounter Details Date Type Department Care Team (Late Contact Info) Description 04/17/2024 Telephone Adult Medicine [facility] [address] [place] [phone] Jenn Bowman RN Social History Tobacco Use Types Packs/Day Years Used Date Smoking Tobacco: Every Day Smokeless Tobacco: Never Alcohol Use Standard Drinks/Week Comments No 0 (1 standard drink = 0.6 oz pur e alcohol) Sex and Gender Information Value Date Recorded Sex Assigned at Not on file Legal Sex Male 12:56 PM EST Gender Identity Not on file Sexual Orientation Not on file documented as of this encounter Progress Notes * Jenn Bowman RN - 04/17/2024 5:[address] Davis; Can we please let the pharmacy now that we are aware of the interaction with the amitriptyline and his prozac and clonidine. Please tell them the benefit out weighs the risk and to please fill the amitriptyline Called pharmacy and advised them of the above. 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 Pt is in agreement with this plan. documented in this encounter Plan of Treatment Upcoming Encounters Date Type Department Care Team (Late st Contact Info) Description 05/05/2024 4:30 PM EDT Office Visit Adult Medicine [facility] [address] [place] [phone] Danny Davis MD [address] [place] [phone] 05/08/2024 2:45 PM EDT Office Visit [facility] Hematology Oncology [address] [place] [phone] Chencho Redman MD [address] [place] [phone] documented as of this encounter Visit Diagnoses Not on filedocumented in this encounter Care Teams Mapping Editor Relationship Specialty Start Date End Date Danny Davis MD [address] [place] [id number] PCP - General Internal Medicine 10/20/11 documented as of this encounter
--- OUTSIDE RECORDS SUMMARY | 2024-05-01 14:31 | XMS_ITS | Clinical Summary ---
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 42 >=40 mg/dL LDL Cholesterol 102(A) 0 - 100 mg/dL Blood Venous blood specimen / Unknown Result [facility] Provider LAB BLOOD ORDERABLES Swati l Result * Colonoscopy (04/04/2019) [facility] Colonoscopy no interpretation , abstracted Anatomical Region Laterality Modality Other Result [facility] Provider HEALTH MAINTENANCE Final Result * HIV Screening (11/20/2017) [facility] HIV Screening abstracted Result [facility] Provider HEALTH MAINTENANCE Final Result * Hepatitis C Screening (11/20/2017) [facility] Hepatitis C Screening abstracted Historical Provider HEALTH MAINTENANCE Final Result from Last 3 Months or Most Recently Relevant to Health Maintenance [place] [address] [facility] MEDICARE Member Subscriber Plan / Payer (Ef fective 2019-Present) Name:Jose Bennett Relation to Subscriber:Self Name:Jose Bennett Payer ID:[id number] Group ID:[id number] Type:Not on file Address: [place] [address] [phone] [place] [address] Care Teams Forestry Contractor Relationship Specialty Start Date End Date Danny Davis MD [address] [place] [address] [place] [phone] PCP - General Internal Medicine 10/20/11
--- OUTSIDE RECORDS SUMMARY | 2024-05-01 14:31 | XMS_ITS | Encounter Summary ---
Author Organization [facility] Address [address] [place] [address] Care Team Providers Care Color Drum Worker Name Role Phone Danny Davis MD Primary Care Provider [phone] Reason for Visit * Reason Onset Date Comments Medication Reaction 04/12/2024 Encounter Details Date Type Department Care Team ([facility] st Contact Info) Description 04/12/2024 Telephone Adult Medicine [facility] [address] [place] [phone] Danny Davis MD [address] [place] [address] Medication Reaction Social History Tobacco Use Types Packs/Day Years [...] as of this encounter Progress Notes * Antwan Reed MA - 04/19/2024 3:14 PM EST Spoke with pharmacist she is aware. * Danny Davis MD - 04/14/2024 4:21 PM EST Please inform the pharmacist that I am aware of the interaction however I think the benefit outweigh the risk and would give the VO for the patient to take this medication as prescribed * Haritha Dodson - 04/14/2024 2:55 PM EST Ary from pharmacy is calling to check on request Would like done today please * Anne Kim MA - 04/14/2024 1:[address] Davis This is a message was sent by the pharmacy: The pharmacy is calling in regards to amitriptyline (ELAVIL). The pharmacy states that amitriptyline (ELAVIL) can cause reaction to Fluoxetine and clonidine and is wondering if it is okay for the patient to still take this medication. Would like a VO okay if possible. Please Advise. * Pennie Kraft - 04/12/2024 3:22 PM EST The pharmacy is calling in regards to amitriptyline (ELAVIL). The pharmacy states that amitriptyline (ELAVIL) can cause reaction to Fluoxetine and clonidine and is wondering if it is okay for the patient to still take this medication. Would like a VO okay if possible. Please Advise. documented in this encounter Plan of Treatment Upcoming Encounters Date Type Department Care Team (Late st Contact Info) Description 05/05/2024 4:30 PM EDT Office Visit Adult Medicine [address] [phone] Danny Davis MD [address] [place] [address] 05/08/2024 2:45 PM EDT Office Visit [facility] Hematology Oncology [address] [place] [phone] Chencho Redman MD [address] [place] [phone] documented as of this encounter Visit Diagnoses Not on filedocumented in this encounter Care Teams Color Drum Worker Relationship Specialty Start Date End Date Danny Davis MD [address] [place] [id number] PCP - General Internal Medicine 10/20/11 documented as of this encounter
== END 2024-05-01 14:43 | disposition home or self-care (01) ==
PROVIDERS: Visit Provider Nurse Practitioner Family
DX: S83.91XA Sprain of unspecified site of right knee, initial encounter (principal)

== ENCOUNTER → 2024-05-01 14:07 | Outpatient (BNV) | payer MEDICARE, SELFPAY | PROVIDERS: Visit Provider Radiology Diagnostic Radiology | DX: S83.91XA Sprain of unspecified site of right knee, initial encounter (principal) | CPT/HCPCS: 73564 ==

== ENCOUNTER 2024-06-23 14:25 | Outpatient (AMB) | payer MEDICARE, SELFPAY ==
--- NOTE | 2024-06-23 14:27 | A.OFFVIS_ITS ---
Vital Signs 06/23/24 14:56 Height 5 ft 1 in Weight 190 lb BMI 35.9 BP 136/88 Blood Pressure Location Rt brachial Position Sitting Pulse 92 Pulse Source Pulse Oximeter Pulse Oximetry (%) 94 Oxygen Delivery Method Room Air Intake Visit Reasons: [place] screening and abdominal pain Intake Note: NEW PATIENT for symptomatic repeat screening. Recent hx abd pain. Chief Complaint; C/O abd pain that has been a chronic concern for the last 5 years. Pt reports that he has had pain ever since having a stent placed for kidney function. Pt only finds relief with prednisone. Hx of reflux which is well controlled with current PPI. Last colo via [employer] in 2019. Due for recall 2024. Supervisor Cell Efficiency Required: No Accompanied by: Self / Same As Patient Allergies hydrocodone [HYDROCODONE] Allergy (Unknown, Unverified 06/23/24 14:37) NAUSEA & VOMITING codeine [CODEINE] Adverse Reaction (Unknown, Unverified 06/23/24 14:37) STOMACH UPSET oxycodone [OXYCODONE] Adverse Reaction (Unknown, Unverified 06/23/24 14:37) STOMACH UPSET HPI HPI [place] screening and abdominal pain: Details: 59 year old? male with past medical history of hypertension, anxiety, GERD arteriosclerotic disease of abdominal aorta is here today for pre colonoscopy screening.? Patient was sent to us by his PCP.? Last colonoscopy was done in 2019 with [facility]. Patient since then had multiple GI issues. Reports abdominal pain and discomfort. Mixed stools sometimes normal, however he feels that he empties his bowels well. Patient reports that the pain moves and is sometimes in the right upper quadrant bed in the middle of the abdomen and then in the left upper quadrant. Patient reports to be bloated. Currently patient is on prednisone as he was diagnosed with elevated GREG and he needs to go in see insurance premium auditor. Patient reports that he feels like the pain is better because he is on the prednisone. Patient had multiple different tests in the past. Patient had ultrasounds and CT scan done that showed no acute processes. Patient reports that sometimes pain is not related to meals it happens couple hours after he eats. Patient feels like sometimes the pain grabs him suddenly. Patient denies melena, hematochezia, unintentional weight loss or ribbon like stools. Patient reports that he stopped drinking several years ago. Patient also stopped using drugs and about a year ago or so stop smoking. Patient is trying to eat healthy. Patient denies any nausea or vomiting. Denies dyspepsia, dysphagia or odynophagia. Reports also epigastric pain and acid reflux. Patient denies eating late at night [facility] Medical History Inguinal hernia Atherosclerosis of abdominal aorta Renal artery stenosis HTN (hypertension) GERD (gastroesophageal reflux disease) Complication of urinary stent Right knee sprain Alcoholism Altered mental status Gastritis Surgical History History of esophagogastroduodenoscopy (EGD) Hx of colonoscopy Social History Patient Tobacco Use Status: Former Tobacco user Review of Systems Const Denies weight gain and Denies weight loss ENT Reports no additional complaints, Denies dysphagia and Denies odynophagia Card Reports no additional complaints Resp Reports no additional complaints GI Reports abdominal pain, Denies belching, Denies melena, Reports bloating, Denies change in bowel habits, Denies dysphagia, Denies excessive flatus, Denies dyspepsia, Reports heartburn, Denies diarrhea, Denies loose stools, Denies nausea, Denies odynophagia and Denies vomiting Reports no additional complaints Musc Reports no additional complaints Neuro Reports no additional complaints Psych Reports no additional complaints Endo Reports no additional complaints Physical Exam Vital Signs: Last Vital Signs Pulse 92 06/23/24 14:56 BP 136/88 06/23/24 14:56 Pulse Ox 94 06/23/24 14:56 Oxygen Delivery Method Room Air 06/23/24 14:56 BMI result Body Mass Index 35.9 Const General: healthy appearing and no acute distress Nutritional Appearance: well nourished and obese Orientation/consciousness: patient oriented x3 Resp Effort & Inspection: normal respiratory effort, able to speak in complete sentences, no tracheal deviation and symmetric chest movement Auscultation: clear to auscultation bilaterally Cardio Rate: regular rate GI Inspection: Yes normal to inspection, No distended and Yes obesity Palpation (GI): Soft to palpation, not firm, nontender and No hepatosplenomegaly present Auscultation: normal bowel sounds General: Yes no CVA tenderness Back/Spine/Pelvis Back: no CVA tenderness Skin General skin exam: elasticity normal, turgor normal and dry skin Neuro General: patient oriented x3 Psych Appearance: grossly normal Mental Status: mental status grossly normal Assessment & Plan Assessment & Plan (1) Screen for colon cancer: Code(s): Z12.11 - Encounter for screening for malignant neoplasm of colon (2) GERD (gastroesophageal reflux disease): Code(s): K21.9 - Gastro-esophageal reflux disease without esophagitis Qualifiers: Esophagitis presence: esophagitis presence not specified Qualified Code(s): K21.9 - Gastro-esophageal reflux disease without esophagitis (3) Postprandial abdominal bloating: Code(s): R14.0 - Abdominal distension (gaseous) (4) GREG positive: Code(s): R76.8 - Other specified abnormal immunological findings in serum Plan Patient reports epigastric pain will rule out celiac, chronic pancreatitis, inflammatory bowel disease. Will check vitamin-D, B12 and folate. Patient reports epigastric pain and severe abdominal bloating. Reports reflux. Will start him on Nexium. Patient was encouraged to avoid dietary triggers of a dissected stay upper for minimal 3 hours after meals discussed with patient. Will send him for upper GI with barium swallow to check for reflux, hernia. Patient reports abdominal bloating will send script for simethicone. Discussed with patient also low FODMAP diet. List of food recommended as well as list of food to avoid given to patient. Patient will follow-up in 3 months and we will discuss going for colonoscopy. Differentials as mentioned above could be Crohn's disease. Patient reports feeling better after being on prednisone. Patient currently is taking prednisone he will wait to go to check fecal calprotectin couple weeks after he stops the medication. Patient is on short- term therapy not long enough to treat Crohn's. He is agreeable to this plan and verbalizes understanding of instructions. He was given the opportunity to ask questions and all questions answered. Thank you for allowing me to participate in his care Orders: Orders Transglutaminase IgA Today R10.9 - Unspecified abdominal pain Lipase Today R10.9 - Unspecified abdominal pain Vitamin B12 and Folate Today R19.7 - Diarrhea, unspecified Calprotectin, Fecal Today R15.9 - Full incontinence of feces Vitamin D 25-OH (D2 and D3) Today E55.9 - Vitamin D deficiency, unspecified [place] upper GI w Ba Swallow Today K21.9 - Gastro-esophageal reflux disease without esophagitis Liver Panel Today R74.01 - Elevation of levels of liver transaminase levels Medications: New esomeprazole magnesium (Nexium) 40 mg PO DAILY 30 caps 3RF K21.9 - Gastro- esophageal reflux disease without esophagitis simethicone 125 mg PO BID-QID PRN 120 caps 3RF abdominal distention K21.9 - Gastro-esophageal reflux disease without esophagitis Coding Level of Care Code New Pt Level 4 (25502) Diagnoses Screen for colon cancer Z12.11 Gastroesophageal reflux disease, unspecified whether esophagitis present K21.9 Esophagitis presence: esophagitis presence not specified Postprandial abdominal bloating R14.0 GREG positive R76.8 Time Spent (min) 50 Comment 35 minutes spent with patient and additional 25 minutes spent reviewing his records
--- OUTSIDE RECORDS SUMMARY | 2024-06-23 14:37 | XMS_ITS | Encounter Summary ---
Author Organization [facility] Address [address] [place] [address] Care Team Providers Care Electrical Maintenance Technician Name Role Phone Danny Davis MD Primary Care Provider [phone] Reason for Referral * Imaging (Routine) - Pending Review Specialty Diagnoses / Procedures Referred By Contac t Referred To Contact Radiology Diagnoses Iliac artery stenosis, right ([facility] V24) Procedures CT Angio Abdominal Aorta w Runoff Yong Rea MD [address] [address] Phone: tel: fax: [address] [address] Phone: tel: Referral ID Status Reason Start Date Expiration Date V isits Requested Visits Authorized [id number] Pending Review 06/19/2024 06/19/2025 1 1 Reason for Visit * Reason Comments Aneurysm * Consultation (Urgent) - Authorized Specialty Diagnoses / Procedures Referred By Contac t Referred To Contact Vascular Surgery Diagnoses Iliac artery stenosis, right ([facility] V24) Danny Davis MD [address] [place] [phone] Phone: tel: fax: Vascular Surgery - [place] [address] [address] Phone: tel: fax: Referral ID Status Reason Start Date Expiration Date Visits Requested Visits Authorized [id number] Authorized Specialty Services Required 06/01/2024 06/01/2025 1 1 Encounter Details Date Type Department Care Team (Late Contact Info) Description 06/19/2024 2:00 PM EDT Consult Vascular Surgery - [place] [address] [phone] Yong Rea MD [address] [id number] Iliac artery stenosis, right (CMS/HCC V24) Social History Tobacco Use Types Packs/Day Years Used Date Smoking Tobacco: Former Cigarettes Smokeless Tobacco: Never Comments:Quit smoking 09/2023 Alcohol Use Standard Drinks/Week Comments No 0 (1 standard drink = 0.6 oz pur e alcohol) Sex and Gender Information Value Date Recorded Sex Assigned at Not on file Legal Sex Male 12:56 PM EST Gender Identity Not on file Sexual Orientation Not on file documented as of this encounter Last Filed Vital Signs Vital Sign Reading Time Taken Comments Blood Pressure 110/70 06/19/2024 1:53 PM EDT Pulse 100 06/19/2024 1:53 PM EDT Temperature - - Respiratory Rate 16 06/19/2024 1:53 PM EDT Oxygen Saturation - - Inhaled Oxygen Concentration - - Weight 84.8 kg (187 lb) 06/19/2024 1:53 PM EDT Height 154.9 cm (5' 1 ) 06/19/2024 1:53 PM EDT Body Mass Index 35.33 06/19/2024 1:53 PM EDT documented in this encounter Plan of Treatment Upcoming Encounters Date Type Department Care Team (Late Contact Info) Description 07/19/2024 2:45 PM EDT Appointment [facility] CT Scan [address] [place] [phone] 08/04/2024 4:00 PM EDT Office Visit V[facility] Surgery - [place] [address] [phone] Yong Rea MD [address] [address] 08/07/2024 3:30 PM EDT Office Visit [facility] Hematology Oncology [address] [place] [phone] Chencho Redman MD [address] [place] [phone] 08/08/2024 2:45 PM EDT Office Visit Adult Medicine [facility] [address] [place] [phone] Sissy Ramos PA [address] [place] [address] Scheduled Orders Name Type Priority Associated Diagnoses Orde r Schedule CT Angio Abdominal Aorta w Runoff Imaging Routine Iliac artery stenosis, right ([facility] V24) Expected: 06/19/2024, Expires: 06/19/2025 documented as of this encounter Results * Creatinine (06/19/2024 3:22 PM EDT) Creatinine 1.09 0.70 - 1.30 mg/dL LAB CHEMISTRY METHOD 06/19/2024 8:15 PM EDT [facility] eGFR 79 >=60 mL/min/1. 73m2 LAB CHEMISTRY METHOD 06/19/2024 8:15 PM EDT [facility] Comment:Calculation based on the??Chronic Kidney Disease Epidemiology Collaboration (CKD-EPI) equation refit??without adjustment for race. Blood Venous blood specimen / Unknown Venipuncture / Unknown 06/19/2024 3:22 PM EDT 06/19/2024 4:10 PM EDT us Yong Rea MD LAB BLOOD ORDERABLES Final Resu lt [facility] [address] [place] [address], * BUN (06/19/2024 3:22 PM EDT) BUN 17 5 - 25 mg/dL LAB CHEMISTRY METHOD 06/19/2024 8:15 PM EDT [facility] Blood Venous blood specimen / Unknown Venipuncture / Unknown 06/19/2024 3:22 PM EDT 06/19/2024 4:10 PM EDT us Yong Rea MD LAB BLOOD ORDERABLES Final Resu lt [facility] [address] [place] [address], documented in this encounter Visit Diagnoses Diagnosis Iliac artery stenosis, right (CMS/HCC V24) Atherosclerosis of [place] arteries of the extremities, unspecified documented in this encounter Orders Outpatient Referral Count Last Ordered Date Fir st Ordered Date AMB REFERRAL TO VASCULAR SURGERY 1 06/20/19 25 documented in this encounter Care Teams Electrical Maintenance Technician Relationship Specialty Start Date End Date Danny Davis MD [address] [place] [phone] PCP - General Internal Medicine 10/20/11 documented as of this encounter
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
--- OUTSIDE RECORDS SUMMARY | 2024-06-23 14:37 | XMS_ITS | Clinical Summary ---
Author Organization [facility] Address [address] [address] Phone Care Team Providers Care Intellectual Property Manager Name Role Phone Danny Davis MD Primary Care Provider [phone] Social History Tobacco Use Types Packs/Day Years Used Date Smoking Tobacco: Never Assessed Sex and Gender Information Value Date Recorded Sex Assigned at Not on file Legal Sex Male 2:05 PM EDT Gender Identity Not on file Sexual Orientation Not on file Plan of Treatment Upcoming Encounters Date Type Department Care Team (Late st Contact Info) Description 07/24/2024 9:00 AM EDT Office Visit [facility] [address] [address] Antony Fernandes MD [address] [address] Health Maintenance Due Date Last Done Comments Hepatitis B Vaccine (1 of 3 - 19+ 3-dose series) 1985 Pneumococcal Vaccine: 50+ Ye ars (2 of 2 - PCV) 01/05/2015 01/05/2014 Colorectal Cancer Screening: Annual FOBT 2015 Colorectal Cancer Screening: Colonoscopy 2015 Colorectal Cancer Screening: Sigmoidoscopy 2015 Influenza Vaccine (Season Ended) 2024 01/14/2022, 10/25/2020, 11/01/2019, Additional history exists Pneumococcal Vaccine: Peds ( 0 to 5 Years) and At-Risk Patients (6 to 49 Years) Discontinued 01/05/2014 Insurance [facility] ([id number]) [place] [id number] Care Teams Intellectual Property Manager Relationship Specialty Start Date End Date Danny Davis MD [address] [place] [address] [phone] PCP - General Internal Medicine 05/25/24
--- OUTSIDE RECORDS SUMMARY | 2024-06-23 14:37 | XMS_ITS | Encounter Summary ---
Author Organization [facility] Address [address] [place] [address] Care Team Providers Care Corrections Cadet Name Role Phone Danny Davis MD Primary Care Provider [phone] Encounter Details Date Type Department Care Team (Late st Contact Info) Description 05/16/2024 Nurse Triage Adult Medicine [facility] [address] [place] [phone] Danny Davis MD [address] [place] [phone] Social History Tobacco Use Types Packs/Day Years [...] on file documented as of this encounter Ordered Prescriptions Prescription Sig Dispense Quantity Refills Last Filled Start Date End Date predniSONE (DELTASONE) 20 mg tablet Take 1 tablet (20 mg total) by mouth 1 (one) time each day. 3 tabs po x 3 days then 2 tabs po x 3 days then one tab po x 3 days 18 tablet 06/02/2024 11/29/2024 predniSONE (DELTASONE) 20 mg tablet 3 tabs po x 3 days then 2 tabs po x 3 days then one tab po x 3 days 18 tablet 05/18/2024 06/22/2024 documented in this encounter Progress Notes * Malik Palacio MA - 06/22/2024 2:32 PM EDT Please see mychart response * Jnen Bowman RN - 06/15/2024 3:30 PM EDT Refill request sent to provider in separate encounter. * Renetta Ward LPN - 06/15/2024 12:06 PM EDT See my chart message on your return * Danny Davis MD - 06/02/2024 6:22 PM EDTAddended by: DANNY DAVIS on: 06/02/2024 06:22 PM Modules accepted: Orders * Aleyda Lopez LPN - 05/22/2024 10:42 AM EDT Last appt was 05/05... do you want him seen for this? documented in this encounter Plan of Treatment Upcoming Encounters Date Type Department Care Team (Late st Contact Info) Description 07/19/2024 2:45 PM EDT Appointment [facility] CT Scan [address] [place] [phone] 08/04/2024 4:00 PM EDT Office Visit Vascular Surgery - [place] [address] [place] [phone] Yong Rea MD [address] [place] [address] 08/07/2024 3:30 PM EDT Office Visit [facility] Hematology Oncology [address] [place] [phone] Heather-Chencho Ann MD [address] [place] [phone] 08/08/2024 2:45 PM EDT Office Visit Adult [facility] [address] [place] [address] Sissy Ramos PA [address] [place] [address] documented as of this encounter Visit Diagnoses Not on filedocumented in this encounter Discontinued Medications Medication Sig Discontinue Reason Start Date End Da te predniSONE (DELTASONE) 20 mg tablet Take 1 tablet (20 mg total) by mouth 1 (one) time each day. 3 tabs po x 3 days then 2 tabs po x 3 days then one tab po x 3 days Reorder 05/05/2024 06/02/2024 documented as of this encounter Care Teams Corrections Cadet Relationship Specialty Start Date End Date Danny Davis MD [address] [place] [address] [phone] PCP - General Internal Medicine 10/20/11 documented as of this encounter
[2024-06-23 14:56] VITALS: BP 136/88; PULSE 92; O2SAT 94; BMI 35.9
== END 2024-06-23 15:19 | disposition home or self-care (01) ==
PROVIDERS: PCP Internal Medicine; Referring Provider Internal Medicine; Visit Provider Nurse Practitioner Family
DX: K21.9 Gastro-esophageal reflux disease without esophagitis (principal); R14.0 Abdominal distension (gaseous); R76.0 Raised antibody titer; Z12.11 Encounter for screening for malignant neoplasm of colon
CPT/HCPCS: 99204

== ENCOUNTER 2024-06-23 14:25 | Outpatient (REF) | payer MEDICARE, SELFPAY ==
--- OUTSIDE RECORDS SUMMARY | 2024-06-23 15:33 | XMS_ITS | Clinical Summary ---
Author Organization [facility] Address [address] [address] Phone Care Team Providers Care Briquette Molder Name Role Phone Danny Davis MD Primary Care Provider [phone] Social History Tobacco Use Types Packs/Day Years [...] Office Visit [facility] [address] [address] Antony Fernandes MD [address] [address] Health Maintenance Due Date Last [...] (6 to 49 Years) Discontinued 01/05/2014 Insurance [facility] ([id number]) [place] [id number] Care Teams Briquette Molder Relationship Specialty Start Date End Date Danny Davis MD [address] [place] [address] [phone] PCP - General Internal Medicine 05/25/24
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
--- OUTSIDE RECORDS SUMMARY | 2024-06-23 15:33 | XMS_ITS | Encounter Summary ---
Author Organization [facility] Address [address] [place] [address] Care Team Providers Care Mathematical Physicist Name Role Phone Danny Davis MD Primary Care Provider Encounter Details Date Type Department Care Team (Late st Contact Info) Description 05/16/2024 Nurse Triage Adult Medicine [facility] [address] [place] [phone] Danny Davis MD [address] [place] [phone] Social History Tobacco Use Types Packs/Day Years [...] PM EDT Please see mychart response * Jenn Bowman RN - 06/15/2024 3:30 PM EDT [...] Info) Description 07/19/2024 2:45 PM EDT Appointment [facility] CT Scan [address] [place] [phone] 08/04/2024 4:00 PM EDT Office Visit Vascular Surgery - [place] [address] [place] [phone] Yong Rea MD [address] [place] [address] 08/07/2024 3:30 PM EDT Office Visit [facility] Hematology Oncology [address] [place] [phone] Heather-Chencho Ann MD [address] [place] [phone] 08/08/2024 2:45 PM EDT Office Visit Adult [facility] [address] [place] [address] Sissy Ramos PA [address] [place] [address] documented as of this encounter Visit Diagnoses [...] documented as of this encounter Care Teams Mathematical Physicist Relationship Specialty Start Date End Date Danny Davis MD [address] [place] [address] [phone] PCP - General Internal Medicine 10/20/11 documented as of this encounter
--- OUTSIDE RECORDS SUMMARY | 2024-06-23 15:33 | XMS_ITS | Encounter Summary ---
Author Organization [facility] Address [address] [place] [address] Care Team Providers Care [employer] Helicopter Pilot Name Role Phone Danny Davis MD Primary Care Provider Reason for Referral * Imaging (Routine) - Pending Review Specialty Diagnoses / Procedures Referred By Contac t Referred To Contact Radiology Diagnoses Iliac artery stenosis, right ([facility] V24) Procedures CT Angio Abdominal Aorta w Runoff Yong Rea MD [address] [address] Phone: tel: fax: [address] [address] Phone: tel: Referral ID Status Reason Start Date Expiration Date V isits Requested Visits Authorized [id number] Pending Review 06/19/2024 06/19/2025 1 1 Reason for Visit * Reason Comments Aneurysm * Consultation (Urgent) - Authorized Specialty Diagnoses / Procedures Referred By Contac t Referred To Contact Vascular Surgery Diagnoses Iliac artery stenosis, right ([facility] V24) Danny Davis MD [address] [place] [phone] Phone: tel: fax: V[facility] Surgery - [place] [address] [address] Phone: tel: fax: Referral ID Status Reason Start Date Expiration Date Visits Requested Visits Authorized [id number] Authorized Specialty Services Required 06/01/2024 06/01/2025 1 1 Encounter Details Date Type Department Care Team (Late Contact Info) Description 06/19/2024 2:00 PM EDT Consult Vascular Surgery - [place] [address] [phone] Yong Rea MD [address] [address] Iliac artery stenosis, right (CMS/HCC V24) Social [...] Info) Description 07/19/2024 2:45 PM EDT Appointment [facility] CT Scan [address] [place] [phone] 08/04/2024 4:00 PM EDT Office Visit [facility] [place] [address] [phone] Yong Rea MD [address] [address] 08/07/2024 3:30 PM EDT Office Visit [facility] Hematology Oncology [address] [place] [phone] Chencho Redman MD [address] [place] [phone] 08/08/2024 2:45 PM EDT Office Visit Adult Medicine [facility] [address] [place] [address] Sissy Ramos PA [address] [place] [address] Scheduled Orders Name Type Priority Associated Diagnoses Orde r Schedule CT Angio Abdominal Aorta w Runoff Imaging Routine Iliac artery stenosis, right ([facility] V24) Expected: 06/19/2024, Expires: 06/19/2025 documented as of this encounter Results * Creatinine (06/19/2024 3:22 PM EDT) Creatinine 1.09 0.70 - 1.30 mg/dL LAB CHEMISTRY METHOD 06/19/2024 8:15 PM EDT [facility] eGFR 79 >=60 mL/min/1. 73m2 LAB CHEMISTRY METHOD 06/19/2024 8:15 PM EDT [facility] Comment:Calculation based on the??Chronic Kidney Disease Epidemiology Collaboration (CKD-EPI) equation refit??without adjustment for race. Blood Venous blood specimen / Unknown Venipuncture / Unknown 06/19/2024 3:22 PM EDT 06/19/2024 4:10 PM EDT us Yong Rea MD LAB BLOOD ORDERABLES Final Resu lt [facility] [address] [place] [address], * BUN (06/19/2024 3:22 PM EDT) BUN 17 5 - 25 mg/dL LAB CHEMISTRY METHOD 06/19/2024 8:15 PM EDT [facility] Blood Venous blood specimen / Unknown Venipuncture / Unknown 06/19/2024 3:22 PM EDT 06/19/2024 4:10 PM EDT us Yong Rea MD LAB BLOOD ORDERABLES Final Resu lt [facility] [address] [place] [address], documented in this encounter Visit Diagnoses Diagnosis Iliac artery stenosis, right (CMS/HCC V24) Atherosclerosis of cachil dehe arteries of the extremities, unspecified documented in this encounter Orders Outpatient Referral Count Last Ordered Date Fir st Ordered Date AMB REFERRAL TO VASCULAR SURGERY 1 06/20/19 25 documented in this encounter Care Teams Army Helicopter Pilot Relationship Specialty Start Date End Date Danny Davis MD [address] [place] [id number] PCP - General Internal Medicine 10/20/11 documented as of this encounter
[2024-06-23 16:47] LABS: Alanine Aminotransferase 28 U/L (0-40); Albumin Level 4.3 g/dL (3.5-5.0); Alkaline Phosphatase 59 U/L (39-117); Aspartate Amino Transferase 18 U/L (5-37); Bilirubin Direct 0.2 mg/dL (0.0-0.5); Bilirubin Total 0.5 mg/dL (0.0-1.0); Lipase 20 U/L (8-78)
[2024-06-23 17:31] LABS: Folate > 20.0 ng/mL (> or = 4.0); Vitamin B12 798 pg/mL (200-900)
[2024-06-26 22:07] LABS: Transglutaminase IgA <1.0 U/mL
[2024-06-28 14:43] LABS: Vitamin D 25-OH, D2 5 ng/mL; Vitamin D 25-OH, D3 19 ng/mL; Vitamin D 25-OH, Total 24 ng/mL (30-100)
== END 2024-06-23 14:26 | disposition home or self-care (01) ==
LOC: HO.LAB 14:25
PROVIDERS: PCP Internal Medicine; Visit Provider Nurse Practitioner Family
DX: Z12.11 Encounter for screening for malignant neoplasm of colon (principal); R10.9 Unspecified abdominal pain; R19.7 Diarrhea, unspecified; E55.9 Vitamin D deficiency, unspecified; R74.01 Elevation of levels of liver transaminase levels; R76.8 Other specified abnormal immunological findings in serum; R14.0 Abdominal distension (gaseous); K21.9 Gastro-esophageal reflux disease without esophagitis
CPT/HCPCS: 36415; 80076; 82306; 82607; 82746; 83690; 86364; 99202

== ENCOUNTER 2024-07-14 09:41 | Outpatient (AMB) | payer MEDICARE, SELFPAY ==
--- NOTE | 2024-07-14 09:43 | A.OFFVIS_ITS ---
Vital Signs 07/14/24 10:00 Height 5 ft 1 in Weight 190 lb BMI 35.9 BP 126/90 H Blood Pressure Location Lt brachial Position Sitting Pulse 106 H Pulse Source Pulse Oximeter Pulse Oximetry (%) 94 Oxygen Delivery Method Room Air Intake Visit Reasons: f/u Intake Note: ESTABLISHED PATIENT for mgmt of GERD + Gastritis. CC; C.O. persistence of gas and bloating despite tx. Pt comments that his GERD seems to be OK. Pt still experiencing pain when not taking his prednisone which was given to him by his PCP. No additional sx or concerns at this time. 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 Will check vitamin-D, B12 and folate. Patient reports epigastric pain and severe abdominal bloating. Reports reflux. Will start him on Nexium. Patient was encouraged to avoid dietary triggers of a dissected stay upper for minimal 3 hours after meals discussed with patient. Will send him for upper GI with barium swallow to check for reflux, hernia. Patient reports abdominal bloating will send script for simethicone. Discussed w ith patient also low FODMAP diet. List of food recommended as well as list of food to avoid given to patient. Patient will follow-up in 3 months and we will discuss going for colonoscopy. Differentials as mentioned above could be Crohn's disease. Patient reports feeling better after being on prednisone. Patient currently is taking prednisone he will wait to go to check fecal calprotectin couple weeks after he stops the medication. Patient is on short-term therapy not long enough to treat Crohn's. He is agreeable to this plan and verbalizes understanding of instructions. He was given the opportunity to ask questions and all questions answered. ? Thank you for allowing me to participate in his care Orders Orders Transglutaminase IgA Today R10.9 Lipase Today R10.9 Vitamin B12 and Folate Today R19.7 Calprotectin, Fecal Today R15.9 Vitamin D 25-OH (D2 and D3) Today E55.9 FL upper GI w Ba Swallow Today K21.9 Liver Panel Today R74.01 Medications New esomeprazole magnesium (Nexium) 40 mg PO DAILY 30 caps 3RF K21.9 simethicone 125 mg PO BID-QID PRN 120 caps 3RF abdominal distention K21.9 TODAY'S VISIT Patient is here today for follow-up. Patient continues to have abdominal pain despite taking Nexium. His pain mainly is in the right side mostly in the lower region. Patient's blood work was reviewed with him. Upper GI series will be done in July. Normal labs except for mildly low vitamin-D level. Patient reports that it feels sometimes tender to touch. Patient states that the pain comes and goes. Patient reports that the pain is very strong. Patient denies melena, hematochezia, unintentional weight loss or ribbon like stools. Patient reports that he moves his bowels daily. Not sure if he feels like he empties them completely. Patient does report abdominal bloating. Tried to look at low FODMAP diet. List of food recommended as well as list of food to avoid was given to patient last visit. He reports that he is changing his diet. Eating healthier. Drinking water. Currently he is on prednisone and feels like prednisone is the only medications that keeps the pain at bay. Patient denies any nausea or vomiting. Denies any dyspepsia, dysphagia or odynophagia. Acid reflux controlled with Nexium. [facility] Medical History Inguinal hernia Atherosclerosis of abdominal aorta Renal artery stenosis HTN (hypertension) GERD (gastroesophageal reflux disease) Complication of urinary stent Right knee sprain Alcoholism Altered mental status Gastritis Surgical History History of esophagogastroduodenoscopy (EGD) Hx of colonoscopy Social History Patient Tobacco Use Status: Former Tobacco user Review of Systems Const Denies weight gain and Denies weight loss ENT Reports no additional complaints, Denies dysphagia and Denies odynophagia Card Reports no additional complaints Resp Reports no additional complaints GI Reports abdominal pain, Denies belching, Denies melena, Reports bloating, Denies change in bowel habits, Reports constipation (Occasional), Denies dysphagia, Denies excessive flatus, Denies dyspepsia, Reports heartburn, Denies diarrhea, Denies loose stools, Denies nausea, Denies odynophagia and Denies vomiting Reports no additional complaints Musc Reports no additional complaints Neuro Reports no additional complaints Psych Reports no additional complaints Endo Reports no additional complaints Physical Exam Vital Signs: Last Vital Signs Pulse 106 H 07/14/24 10:00 BP 126/90 H 07/14/24 10:00 Pulse Ox 94 07/14/24 10:00 Oxygen Delivery Method Room Air 07/14/24 10:00 BMI result Body Mass Index 35.9 Const General: healthy appearing and no acute distress Nutritional Appearance: well nourished and obese Orientation/consciousness: patient oriented x3 Resp Effort & Inspection: normal respiratory effort, able to speak in complete sentences, no tracheal deviation and symmetric chest movement Auscultation: clear to auscultation bilaterally Cardio Rate: regular rate GI Inspection: Yes normal to inspection, No distended and Yes obesity Palpation (GI): Soft to palpation, not firm, nontender and No hepatosplenomegaly present Auscultation: normal bowel sounds General: Yes no CVA tenderness Back/Spine/Pelvis Back: no CVA tenderness Skin General skin exam: elasticity normal, turgor normal and dry skin Neuro General: patient oriented x3 Psych Appearance: grossly normal Mental Status: mental status grossly normal Results Reviewed Results Reviewed: Laboratory Tests 06/23/24 16:00 Total Bilirubin 0.5 Direct Bilirubin 0.2 AST 18 ALT 28 Alkaline Phosphatase 59 Lipase 20 Vitamin B12 798 25-OH Vitamin D Total 24 L Folate > 20.0 Tiss Transglutamin IgA <1.0 Assessment & Plan Assessment & Plan (1) Screen for colon cancer: Code(s): Z12.11 - Encounter for screening for malignant neoplasm of colon (2) GERD (gastroesophageal reflux disease): Code(s): K21.9 - Gastro-esophageal reflux disease without esophagitis Qualifiers: Esophagitis presence: esophagitis presence not specified Qualified Code(s): K21.9 - Gastro-esophageal reflux disease without esophagitis (3) Postprandial abdominal bloating: Code(s): R14.0 - Abdominal distension (gaseous) (4) GREG positive: Code(s): R76.8 - Other specified abnormal immunological findings in serum Plan Upper GI series was ordered last visit and is scheduled for August 07. Will send patient for upper endoscopy as well as colonoscopy. Will send him script for Senokot. Patient does moves his bowels, however he does not empty his bowels completely. Abdominal bloating, possible that pain in his right side is due to gas trapping pain. He will be going for colonoscopy. Reviewed all his labs and CT scans from [facility] no acute findings. Message sent to surgical schedulers to book procedure for patient. What to expect before during and after procedure discussed with patient. Stressed the importance of good bowel prep and clear liquid diet day before procedure. Patient will call our office if he will have any GI concerning symptoms, otherwise I will see him after the procedure. He is agreeable to current plan of care and verbalizes understanding of instructions. He was given the opportunity to ask questions and all questions answered. Thank you for allowing me to participate in his care Medications: New bisacodyl (Dulcolax (bisacodyl)) take 4 tabs at noon the day before your colonoscopy 20 mg (4 x 5 mg) PO ONCE 1 day 4 tabs 0RF Z12.11 - Encounter for screening for malignant neoplasm of colon sennosides (Natural Senna Laxative) 17.2 mg (2 x 8.6 mg) PO BEDTIME 60 tabs 3RF constipation K59.00 - Constipation, unspecified polyethylene glycol 3350 (Miralax) As directed by [facility]ology [facility] at [facility] 238 grams PO ONCE 238 grams 0RF Z12.11 - Encounter for screening for malignant neoplasm of colon Coding Level of Care Code Est Pt Level 4 (56300) Complex EM visit Add On G2211 Diagnoses Screen for colon cancer Z12.11 Gastroesophageal reflux disease, unspecified whether esophagitis present K21.9 Esophagitis presence: esophagitis presence not specified Postprandial abdominal bloating R14.0 GREG positive R76.8 Time Spent (min) 35 Comment 25 minutes spent with patient and additional 10 minutes spent reviewing his records
--- OUTSIDE RECORDS SUMMARY | 2024-07-14 09:56 | XMS_ITS | Clinical Summary ---
Author Organization [facility] Address [address] [phone] Phone Care Team Providers Care Director Software Quality Assurance Name Role Phone Danny Davis MD Primary Care Provider [phone] Social History Tobacco Use Types Packs/Day Years [...] Office Visit [facility] [address] [phone] Antony Fernandes MD [address] [phone] Health Maintenance Due Date Last [...] (6 to 49 Years) Discontinued 01/05/2014 Insurance [facility] ([id number]) LORIE OLIVER [phone] Care Teams Director Software Quality Assurance Relationship Specialty Start Date End Date Danny Davis MD [address] [place] [phone] PCP - General Internal Medicine 05/25/24
[2024-07-14 10:00] VITALS: BP 126/90; PULSE 106; O2SAT 94; BMI 35.9
== END 2024-07-14 10:54 | disposition home or self-care (01) ==
LOC: HO.HGI 09:42
PROVIDERS: PCP Internal Medicine; Visit Provider Nurse Practitioner Family
DX: K21.9 Gastro-esophageal reflux disease without esophagitis (principal); R14.0 Abdominal distension (gaseous); R76.0 Raised antibody titer; R10.9 Unspecified abdominal pain
CPT/HCPCS: 99214; G2211

== ENCOUNTER → 2024-07-14 09:41 | Outpatient (BNVA) | payer OTHER, SELFPAY | PROVIDERS: PCP Internal Medicine; Visit Provider Nurse Practitioner Family | DX: Z01.818 Encounter for other preprocedural examination (principal); K21.9 Gastro-esophageal reflux disease without esophagitis; R14.0 Abdominal distension (gaseous); R76.8 Other specified abnormal immunological findings in serum | CPT/HCPCS: 99212 ==

== ENCOUNTER 2024-08-07 07:35 | Outpatient (REF) | payer OTHER, SELFPAY ==
--- NOTE | ~2024-08-07 | FL_ITS ---
EXAMINATION: XR FLUOROSCOPY UPPER GI SERIES CLINICAL INFORMATION: 59-year-old male complaining of multifocal abdominal pain, episodic. COMPARISON: None TECHNIQUE: Fluoroscopic air contrast upper GI examination was performed utilizing standard techniques with thin and thick barium and effervescent granules. Numerous spot images were obtained. Several fluoroscopic image hold cine sequences were also obtained. FINDINGS: UPPER GI SERIES: Lateral cine images of the oropharynx and hypopharynx demonstrate normal swallow mechanism with normal epiglottic inversion and soft palate elevation. No laryngeal penetration, glottic or subglottic aspiration identified. No nasopharyngeal reflux present. Hypopharyngeal structures appear normal without evidence of mass or diverticulum. There was moderate cricopharyngeal achalasia, with significant ballooning of the hypopharynx during swallow. (RF 1-2, image 21). Dual and single contrast images of the esophagus demonstrate normal caliber, contour, and mucosal pattern. No evidence of stricture, mass, or ulcerations identified. Esophageal peristalsis was mild to moderately disordered. Small type I hiatus hernia present. Gastroesophageal reflux noted episodically to the level of the aortic arch. Dual contrast and single contrast images of the stomach result limited due to poor retention of the effervescent granule gas. Resultant suboptimal distention of the stomach. Prominent gastric rugal folds, unknown significance in this setting. No gross mass, or significant ulceration. Contrast freely passed into the gastric antrum and duodenal bulb without delay. Single and air-contrast images of the duodenal bulb demonstrate no abnormality. The duodenal sweep has a normal appearance, course, and mucosal fold appearance. FLUOROSCOPY TIME: 3 minutes 17 seconds Number of Spot Images:11 Number of cines obtained: 15 DOSE AREA PRODUCT: [id number] uGy-m2 (microgray-meter squared) FL/FL upper GI w air w Ba Swallow IMPRESSION: 1. Moderate cricopharyngeal muscle achalasia, with significant ballooning of the hypopharynx during swallow. 2. Mild to moderately disordered esophageal peristalsis. 3. Small type I hiatus hernia. 4. Feline contraction pattern of the esophagus, suggesting long-standing reflux. 5. Gastroesophageal reflux noted episodically to the level of the aortic arch. 6. Somewhat limited evaluation of the stomach due to poor retention of the effervescent granule gas. Gastric rugal fold prominence is present, unknown significance in this setting. Electronically signed by: Ronnie Ley MD 08/07/2024 09:21 AM EDT RP
--- OUTSIDE RECORDS SUMMARY | 2024-08-07 07:38 | XMS_ITS | Encounter Summary ---
Author Organization [facility] Address [address] [place] [address] Care Team Providers Care Certified Substance Abuse Counselor Name Role Phone Danny Davis MD Primary Care Provider [phone] Reason for Referral * Imaging (Routine) - Authorized Specialty Diagnoses / Procedures Referred By Contac t Referred To Contact Radiology Diagnoses Iliac artery stenosis, right (CMS/HCC V24) Procedures CT Angio Abdominal Aorta w Runoff Yong Rea MD [address] [address] Phone: tel: fax: [facility] [address] [place] [address] Phone: tel: Referral ID Status Reason Start Date Expiration Date V isits Requested Visits Authorized [id number] Authorized 07/18/2024 11/18/2024 1 1 Reason for Visit * Imaging (Routine) - Authorized Specialty Diagnoses / Procedures Referred By Contac t Referred To Contact Radiology Diagnoses Iliac artery stenosis, right ([facility]/HCC V24) Procedures CT Angio Abdominal Aorta w Runoff oYng Rea MD [address] [address] Phone: tel: fax: [facility] [address] [place] [address] Phone: tel: Referral ID Status Reason Start Date Expiration Date V isits Requested Visits Authorized [id number] Authorized 07/18/2024 11/18/2024 1 1 Encounter Details Date Type Department Care Team (Latest Contact Info) Description 08/04/2024 7:43 AM EDT - 08/04/2024 11:59 PM EDT Hospital Encounter [facility] [address] [place] [address] Iliac artery stenosis, right (CMS/HCC V24) Discharge Disposition: Home or Self Care Social History Tobacco Use Types Packs/Day Years Used Date Smoking Tobacco: Former Cigarettes Smokeless Tobacco: Never Comments:Quit smoking 09/2023 Alcohol Use Standard Drinks/Week Comments No 0 (1 standard drink = 0.6 oz pur e alcohol) Housing Instability Answer Date Recorde d Are you worried that in the next 2 months you may not have stable housing? No 08/01/2024 Food Access & Nutrition Answer Date Rec orded Do you have access to a vari ety of food including fruits and vegetables? Yes 08/01/2024 Health Literacy Answer Date Recorded How often do you need to hav e someone help you when you read instructions, pamphlets, or other written material from your doctor or pharmacy? Never 08/01/2024 Caregiver: How often do you need to have someone help you when you read instructions, pamphlets, or other written material from your doctor or pharmacy? Not on file 08/01/2024 Financial Risk Answer Date Recorded How hard is it for you to pa y for the very basics like food, housing, medical care, and air conditioning / heating? Not very hard 08/01/2024 Transportation Answer Date Recorded Has the lack of transportati on kept you from meetings, work, or from getting things needed for daily living? No Has the lack of transportati on kept you from medical appointments or from getting medications? No 08/01/2024 Social Isolation Answer Date Recorded How often do you feel lonely or isolated from those around you? Sometimes 08/01/2024 Food Risk Answer Date Recorded Within the past 12 months we worried whether our food would run out before we got money to buy more. Sometimes true 025 Within the past 12 months th e food we bought just didn't last and we didn't have money to get more. Sometimes true 08/01/2024 Dependent Care Answer Date Recorded Do you need help finding or paying for care for your loved ones. For example, early childhood or elderly care for an older adult? No 08/01/2024 Education Answer Date Recorded Do you think completing more education or training, like finishing a GED, going to college, or learning a trade, would be helpful for you? No 08/01/2024 Employment and Income Answer Date Recor ded During the last four weeks, have you been actively looking for work? No 08/01/2024 Living Situation Answer Date Recorded What is your living situation? 0 08/01/2024 Sex and Gender Information Value Date Recorded Sex Assigned at Not on file Legal Sex Male 12:56 PM EST Gender Identity Not on file Sexual Orientation Not on file documented as of this encounter Medications at Time of Discharge amitriptyline (ELAVIL) 10 mg tablet TAKE 1 TO 2 TABLETS(10 TO 20 MG) BY MOUTH AT BEDTIME 180 tablet 1 07/10/2024 aspirin 81 mg EC tablet Take 1 tablet (81 mg total) by mouth 1 (one) time each day. 90 each 1 04/12/2024 cloNIDine (CATAPRES) 0.1 mg tablet Take 0.1 mg by mouth 2 times daily. clotrimazole (LOTRIMIN) 1 % cream Apply 30 Applications topically 2 (two) times a day. 10/09/2021 cyanocobalamin (VITAMIN B-12) 1,000 mcg tablet Take 1 tablet (1,000 mcg total) by mouth 1 (one) time each day. Route: Take 2 Tablets by mouth daily for 360 days 10/28/2023 cyanocobalamin (VITAMIN B-12) 2,000 mcg tablet Take 1 tablet (2,000 mcg total) by mouth 1 (one) time each day. 12/06/2023 diclofenac (VOLTAREN) 75 mg EC tablet TAKE 1 TABLET BY MOUTH TWICE DAILY 180 tablet 07/13/2024 dilTIAZem CD (CARDIZEM CD) 180 mg 24 hr capsule Take 1 capsule (180 mg total) by mouth 1 (one) time each day. 90 capsule 1 06/21/2024 FLUoxetine (PROzac) 40 mg capsule Take 40 mg by mouth 2 times daily. folic acid (FOLVITE) 1 mg tablet Take 1 tablet (1 mg total) by mouth 1 (one) time each day. 30 tablet 5 05/09/2024 6 gabapentin (NEURONTIN) 600 mg tablet Take 1 Tablet by mouth 4 times daily. hydrOXYzine HCL (ATARAX) 50 mg tabletIndications :Anxiety Take 1 tablet (50 mg total) by mouth every 8 (eight) hours if needed for itching. 90 tablet 2 04/27/2024 ibuprofen (ADVIL,MOTRIN) 800 mg tablet Take 1 tablet (800 mg total) by mouth every 8 (eight) hours if needed for moderate pain. for pain 270 tablet 1 07/14/2024 Lactobac. rhamnosus GG-inulin ([facility]) 10 billion cell -200 mg capsule, sprinkle Take 1 capsule by mouth 1 (one) time each day. 11/12/2023 Lactobacillus acidophilus capsule Take 1 Capsule by mouth daily. 11/05/2023 lisinopriL (PRINIVIL,ZESTRIL ) 20 mg tablet TAKE 1 TABLET(20 MG) BY MOUTH 1 TIME EACH DAY 90 tablet 1 03/04/2024 ondansetron (ZOFRAN) 4 mg tablet Take 1 tablet (4 mg total) by mouth every 8 (eight) hours if needed for nausea or vomiting. 09/29/2022 pantoprazole (PROTONIX) 40 mg EC tablet Take 1 tablet (40 mg total) by mouth 2 (two) times a day. Do not crush, chew, or split. 180 tablet 1 04/12/2024 predniSONE (DELTASONE) 20 mg tablet Take 1 tablet (20 mg total) by mouth 1 (one) time each day. 3 tabs po x 3 days then 2 tabs po x 3 days then one tab po x 3 days 18 tablet 06/02/2024 5 predniSONE (DELTASONE) 20 mg tablet 3 tabs po x 3 days then 2 tabs po x 3 days then one tab po x 3 days 18 tablet 07/10/2024 predniSONE (DELTASONE) 5 mg tablet Take 1 tablet (5 mg total) by mouth 1 (one) time each day. 30 tablet 07/24/2024 5 pregabalin (LYRICA) 225 mg capsuleIndication s:Chronic epididymitis Take 1 capsule (225 mg total) by mouth 2 (two) times a day. Max Daily Amount: 450 mg 180 each 07/14/2024 pregabalin (LYRICA) 225 mg capsuleIndication s:Chronic epididymitis TAKE 1 CAPSULE(225 MG) BY MOUTH TWICE DAILY. MAX DAILY AMOUNT: 450 MG 180 capsule 07/13/2024 QUEtiapine (SEROquel) 50 mg tablet Take 1 Tablet by mouth 3 times daily. QUEtiapine XR (SEROquel XR) 300 mg 24 hr tablet Take 1 Tablet by mouth at bedtime. traMADoL (ULTRAM) 50 mg tabletIndications :Chronic abdominal pain Take 1 tablet (50 mg total) by mouth 3 (three) times a day if needed for moderate pain for up to 10 days. Max Daily Amount: 150 mg 30 tablet 08/03/2024 documented as of this encounter Discharge Disposition Disposition Code Departure Means Destination Home or Self Care documented in this encounter Plan of Treatment Upcoming Encounters Date Type Department Care Team (Late st Contact Info) Description 08/07/2024 3:30 PM EDT Office Visit [facility] Hematology Oncology [address] [place] [address] Chencho Redman MD [address] [place] [address] 08/08/2024 2:45 PM EDT Office Visit Adult Medicine [address] [address] Sissy Ramos PA [address] [place] [phone] Scheduled Procedures Name Priority Associated Diagnoses Date/Ti me ANGIOGRAPHY LOWER EXT RIGHT Critical limb ischemia of right lower extremity (CMS/HCC V24, CMS/HCC V28) documented as of this encounter Procedures Procedure Name Priority Date/Time Associated Diagnosis Comments CT ANGIO ABDOMINAL AORTA W RUNOFF Routine 08/04/2024 8:28 AM EDT Iliac artery stenosis, right (CMS/HCC V24) documented in this encounter Results * CT Angio Abdominal Aorta w Runoff (08/04/2024 8:28 AM EDT) Anatomical Region Laterality Modality Body Computed Tomogra phy 08/04/2024 10:2 2 AM EDT Impressions 08/04/2024 10:30 AM EDT Impression: Moderate aortoiliac plaque with multifocal mild to moderate stenoses in a small focal left common femoral artery dissection. ??No occlusion. ??Recommend correlation with arterial Doppler for evaluation of the calf vasculature which appears patent. -------- FINAL REPORT -------- Dictated By: Neeraj Veliz Dictated Date: 08/04/2024 10:22 ET Assigned Physician: Neeraj Veliz Reviewed and Electronically Signed By: Neeraj Veliz Signed Date: 08/04/2024 10:30 ET Workstation ID: [id number] Transcribed By: Self Edit Transcribed Date: 08/04/2024 10:22 ET Narrative 08/04/2024 10:[address] angiography abdomen and pelvis INDICATION: Claudication or leg ischemia Comparison: None TECHNIQUE: CT angiography of the abdomen and pelvis following the intravenous administration of 100cc Isovue 370. Multiplanar reformats. The examination was performed utilizing dose reduction techniques. Total DLP 1916 Vasculature: ? Atherosclerotic plaque throughout the aorta and iliac vasculature with multifocal mild to moderate narrowing of the iliac arteries and focal dissection of the distal left external iliac artery/common femoral artery which is not flow limiting. ??When evaluating the left lower extremity runoff there is chronic plaque mild in nature to the popliteal artery with three-vessel runoff to the ankle. ??In evaluation of the right lower extremity runoff there is mild to moderate multifocal hard and soft plaque to the popliteal artery and what appears to be three-vessel runoff into the level of the ankle. ??Ossific plaque noted in the right calf vasculature which could be correlated with a dedicated arterial Doppler desired. There is moderate narrowing of the celiac artery at its origin. ??There is moderate severe narrowing at the origin/proximal SMA with hard and soft plaque noted. ??There is a replaced common hepatic artery off the superior mesenteric artery. ??There are no about vessel occlusion. ??There is also probable [id number] stenosis of the origin of the inferior mesenteric artery. ??Left renal artery is patent. ??There is a stent in the right renal artery origin which appears patent. Nonvascular findings: Lung bases: Hypoventilatory changes and emphysematous changes at the lung bases. Spleen: Mild splenomegaly. Pancreas: Normal. Liver: Normal. Gallbladder/biliary: Normal. Adrenals: Normal. Kidneys: Mildly atrophic upper pole of the right kidney. ??Calcifications in the right kidney are favored to be vascular. ??There is a question of a punctate calcification left kidney which could represent a nonobstructing calculus. Bowel/mesentery: That is post appendectomy. ??No acute infectious or inflammatory process. Lymph nodes: No pathologically enlarged lymph nodes. Bladder: Underdistended. Pelvic organs: No mass. ??Hysterectomy clips. Osseous structures: There are degenerative changes in the spine. Procedure Note Neeraj Veliz MD - 08/04/2024 CT angiography abdomen and pelvis INDICATION: Claudication or leg ischemia Comparison: None TECHNIQUE: CT angiography of the abdomen and pelvis following theintravenous administration of 100cc Isovue 370. Multiplanar reformats. Theexamination was performed utilizing dose reduction techniques. Total [id number] Vasculature: Atherosclerotic plaque throughout the aorta and iliac vasculature withmultifocal mild to moderate narrowing of the iliac arteries and focaldissection of the distal left external iliac artery/common femoral arterywhich is not flow limiting. When evaluating the left lower extremityrunoff there is chronic plaque mild in nature to the popliteal artery withthree-vessel runoff to the ankle. In evaluation of the right lowerextremity runoff there is mild to moderate multifocal hard and soft plaqueto the popliteal artery and what appears to be three-vessel runoff intothe level of the ankle. Ossific plaque noted in the right calfvasculature which could be correlated with a dedicated arterial Dopplerdesired. There is moderate narrowing of the celiac artery at its origin. There ismoderate severe narrowing at the origin/proximal SMA with hard and softplaque noted. There is a replaced common hepatic artery off the superiormesenteric artery. There are no about vessel occlusion. There is alsoprobable [id number] stenosis of the origin of the inferiormesenteric artery. Left renal artery is patent. There is a stent in theright renal artery origin which appears patent. Nonvascular findings: Lung bases: Hypoventilatory changes and emphysematous changes at the lungbases. Spleen: Mild splenomegaly. Pancreas: Normal. Liver: Normal. Gallbladder/biliary: Normal. Adrenals: Normal. Kidneys: Mildly atrophic upper pole of the right kidney. Calcificationsin the right kidney are favored to be vascular. There is a question of apunctate calcification left kidney which could represent a nonobstructingcalculus. Bowel/mesentery: That is post appendectomy. No acute infectious orinflammatory process. Lymph nodes: No pathologically enlarged lymph nodes. Bladder: Underdistended. Pelvic organs: No mass. Hysterectomy clips. Osseous structures: There are degenerative changes in the spine. IMPRESSION: Impression: Moderate aortoiliac plaque with multifocal mild to moderate stenoses in asmall focal left common femoral artery dissection. No occlusion.Recommend correlation with arterial Doppler for evaluation of the calfvasculature which appears patent. 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, unspecified documented in this encounter Administered Medications Inactive Administered Medications - up to 3 most recent administrations Medication Order MAR Action Action Date Dose Rate Site iopamidoL (ISOVUE-370) 370 mg iodine /mL (76 %) injection 120 mL 120 mL, intravenous, Once in imaging, Starting on Wed08/04/24 at 0754, For 1 dose Given 08/04/2024 7:57 AM EDT 120 mL sodium chloride 0.9 % flush 10 mL 10 mL, intravenous, Once, On Wed08/04/24 at 0815, For 1 dose Given 08/04/2024 7:57 AM EDT 10 mL sodium chloride 0.9 % intravenous solution 50 mL 50 mL, intravenous, Once in imaging, Starting on Wed08/04/24 at 0754, For 1 dose Given 08/04/2024 7:58 AM EDT 50 mL documented in this encounter Additional Health Concerns Assessment Noted Time PHQ-9 Depression Total Score: 8 08/02/19 7:39 PM EDT documented as of this encounter Care Teams Certified Substance Abuse Counselor Relationship Specialty Start Date End Date Danny Davis MD [address] [place] [phone] PCP - General Internal Medicine 10/20/11 documented as of this encounter
== END 2024-08-07 07:36 | disposition home or self-care (01) ==
LOC: HO.XRAY 07:35
PROVIDERS: PCP Internal Medicine; Visit Provider Nurse Practitioner Family
DX: K21.9 Gastro-esophageal reflux disease without esophagitis (principal)
CPT/HCPCS: 74246

== ENCOUNTER → 2024-08-07 07:37 | Outpatient (BNV) | payer MEDICARE, SELFPAY | PROVIDERS: PCP Internal Medicine; Visit Provider Radiology Diagnostic Radiology | DX: R13.14 Dysphagia, pharyngoesophageal phase (principal) | CPT/HCPCS: 74246 ==